=== PATIENT | male | born 1965 | race Hispanic/Latino ===

== ENCOUNTER 2019-10-04 16:01 | Emergency (ER) | payer BC ==
--- OUTSIDE RECORDS SUMMARY | 2019-10-04 16:07 | XMS REPORT | Continuity of Care Document ---
:1965 Author Organization [facility] t Address [address] Diaz [address] [place] [address] Care Team Providers Name Role Phone Jr Najera Harold S Attending Clinician Unavailable Problems This patient has no known problems. Allergies, Adverse Reactions, Alerts This patient has no known allergies or adverse reactions. Medications This patient has no known medications. Procedures This patient has no known procedures. Encounters Start End Encounter Admission Attending Care Care Encounter Source Date/Time Date/Time Type Type Clinicians Facility Department ID 2017-05-30 2017-05-30 Outpatient Jr Najera SETENT SETENT 1975 [address] 09:39:00 09:39:00 [facility] Ear Nose and Throat 2017-05-24 2017-05-24 Outpatient Jr Najera SETENT SETENT 1971 [address] 09:33:00 09:33:00 [facility] Ear Nose and Throat 2017-05-23 2017-05-23 Outpatient Jr Najera SETENT SETENT 1969 [address] 08:47:00 08:47:00 [facility] Ear Nose and Throat Results This patient has no known results.
[2019-10-04] MEDS ORDERED: NA CHLORIDE 0.9% 1,000 ML ONE (16:53)
[2019-10-04 16:59] LABS: Hematocrit 47.9 % (39.6-49.0); Lymphocytes % 21.3 % (15.3-44.8); MPV 10.8 fL (7.6-11.3); RBC Red Blood Cell Count 5.51 M/uL (4.33-5.43)
[2019-10-04 17:05] LABS: BUN Blood Urea Nitrogen 24 mg/dL (7-18); Bicarbonate 29 mmol/L (21-32); Creatine Phosphokinase 189 U/L (39-308); Glucose Level 87 mg/dL (74-106); Potassium 3.9 mmol/L (3.5-5.1); Sodium Level 136 mmol/L (136-145)
--- NOTE | 2019-10-04 17:50 | ER ---
Nurse's Notes [facility] Name: Mansoor Cerda Jr Age: 54 yrs Sex: Male : 1965 Arrival Date: 10/04/2019 Time: 16:05 Bed 4 Private MD: Diagnosis: Allergic contact dermatitis;Cramp and spasm;Exposure to excessive natural heat Presentation: 10/03 16:09 Chief complaint: Patient states: + body aches since last night. Diarrhea since ll1 yesterday. Started having muscle cramps after work. Possible dehydration. Coronavirus screen: Proceed with normal triage. Patient denies a cough. Patient denies shortness of breath or difficulty breathing. Patient denies measured and/or subjective temperature greater than 100.4F prior to today's visit. Patient denies travel on a cruise ship or to a country the [facility] currently lists as an affected area. Patient denies contact with known and/or suspected case of COVID-19. Ebola Screen: Patient denies travel to an Ebola-affected area in the 21 days before illness onset. Initial Sepsis Screen: Does the patient meet any 2 criteria? No. Patient's initial sepsis screen is negative. Risk Assessment: Do you want to hurt yourself or someone else? Patient reports no desire to harm self or others. Onset of symptoms was October 03, 2019. 16:09 Method Of Arrival: Ambulatory ll1 16:09 Acuity: CARINA 3 ll1 16:10 Initial Sepsis Screen: Does the patient have a suspected source of infection? No. iw Patient's initial sepsis screen is negative. Historical: - Allergies: 16:12 Phenergan; ll1 - PMHx: 16:12 Gout; Hypertension; Kidney stones; Anxiety; GERD; ll1 - PSHx: 16:12 Cholecystectomy; ll1 - Immunization history:: Flu vaccine is up to date. - Social history:: Patient/guardian denies using alcohol, street drugs, tobacco products, Smoking status: unknown. Screenin:43 Abuse screen: Denies threats or abuse. Denies injuries from another. Nutritional iw screening: No deficits noted. Tuberculosis screening: No symptoms or risk factors identified. Fall Risk IV access (20 points). Assessment: 16:40 General: Appears in no apparent distress. Behavior is calm, cooperative. Pain: iw Complains of pain in pt feels soreness in his muscles from the cramping. Neuro: Level of Consciousness is awake, alert, obeys commands, Oriented to person, place, time, situation, Moves all extremities. Full function. Cardiovascular: Patient's skin is warm and dry. Respiratory: Respiratory effort is even, unlabored, Respiratory pattern is regular, symmetrical. GI: Patient currently denies diarrhea, nausea, vomiting. Derm: Skin is intact, is healthy with good turgor. Musculoskeletal: Range of motion: intact in all extremities. Vital Signs: 16:09 Pulse 77; Resp 18; Temp 98.3; Pulse Ox 95% ; Weight 155.58 kg; Height 5 ft. 6 in. ll1 (167.64 cm); Pain 6/10; 16:30 BP 112 / 61 Supine; Pulse 71; Resp 16 S; Pulse Ox 98% on R/A; iw 16:35 BP 134 / 78 Sitting; Pulse 71; Resp 16; Pulse Ox 99% on R/A; iw 16:40 BP 139 / 98 Standing; Pulse 78; Resp 16; Pulse Ox 98% on R/A; iw 17:26 BP 116 / 66; Pulse 67; Resp 16; Pulse Ox 97% on R/A; iw 18:14 BP 134 / 91; Pulse 69; Resp 18; Temp 97.8; Pulse Ox 98% on R/A; ph 16:09 Body Mass Index 55.36 (155.58 kg, 167.64 cm) ll1 ED Course: 16:05 Patient arrived in ED. fj1 16:12 Triage completed. ll1 16:12 Shavon Pollard FNP-C [facility]. kb 16:12 Jose Riuz MD is Attending Physician. kb 16:13 Arm band placed on. ll1 16:40 Amanda Rubio, MARY is Primary Nurse. iw 16:43 Initial lab(s) drawn, by me, sent to lab. Inserted saline lock: 20 gauge in left iw forearm, using aseptic technique. Blood collected. 18:14 No provider procedures requiring assistance completed. IV discontinued, intact, ph bleeding controlled, No redness/swelling at site. Pressure dressing applied. 18:15 Patient has correct armband on for positive identification. Bed in low position. Call ph light in reach. Side rails up X 1. Pulse ox on. NIBP on. Door closed. Noise minimized. Administered Medications: 16:51 Drug: NS 0.9% 1000 ml Route: IV; Rate: 1000 ml; Site: left forearm; iw 18:13 Follow up: Response: No adverse reaction; IV Status: Completed infusion; IV Intake: ph 1000ml Intake: 18:13 IV: 1000ml; Total: 1000ml. ph Outcome: 17:49 Discharge ordered by MD. da silva 18:21 Discharged to home ambulatory. ph 18:21 Condition: good 18:21 Discharge instructions given to patient, Instructed on discharge instructions, follow up and referral plans. Demonstrated understanding of instructions, follow-up care. 18:21 Patient left the ED. ph Signatures: Shavon Pollard, FIREWALL ADMINISTRATOR-C FIREWALL ADMINISTRATOR-CkAmanda Omalley, RN RN Marilin Sierra RN RN Tu Olmedo Gallito Finley RN RN ll1 Corrections: (The following items were deleted from the chart) 16:42 16:30 BP 112 / 61; Pulse 71bpm; Resp 16bpm; Spontaneous; Pulse Ox 98% RA; iw iw
--- NOTE | 2019-10-04 17:50 | EDPHYS ---
Physician Documentation [facility] Name: Mansoor Cerda Jr Age: 54 yrs Sex: Male : 1965 Arrival Date: 10/04/2019 Time: 16:05 Bed 4 Private MD: ED Physician Jose Ruiz HPI: 10/03 18:01 This 54 yrs old Male presents to ER via Ambulatory with complaints of kb DEHYDRATION. 18:01 Pt reports he was working outside all day yesterday and it was a bad day. States it was kb hot with no breeze or shade. States he thinks he got overheated and didn't drink enough water. Reports he was feeling drained when he got home and had muscle cramps throughout the night. States the cramps are better, but today he was still feeling drained. He did go to work today in the same elements/same location. Also reports a small, itchy rash to left AC that started 5 days ago.. Onset: The symptoms/episode began/occurred yesterday. Severity of symptoms: At their worst the symptoms were moderate in the emergency department the symptoms have improved. The patient has not experienced similar symptoms in the past. The patient has not recently seen a physician. Historical: - Allergies: 16:12 Phenergan; ll1 - PMHx: 16:12 Gout; Hypertension; Kidney stones; Anxiety; GERD; ll1 - PSHx: 16:12 Cholecystectomy; ll1 - Immunization history:: Flu vaccine is up to date. - Social history:: Patient/guardian denies using alcohol, street drugs, tobacco products, Smoking status: unknown. ROS: 17:41 Constitutional: Negative for fever, chills, and weight loss, ENT: Negative for injury, kb pain, and discharge, Neck: Negative for injury, pain, and swelling, Cardiovascular: Negative for chest pain, palpitations, and edema, Respiratory: Negative for shortness of breath, cough, wheezing, and pleuritic chest pain, Abdomen/GI: Negative for abdominal pain, nausea, vomiting, diarrhea, and constipation, Back: Negative for injury and pain, MS/Extremity: Negative for injury and deformity, Skin: Negative for injury, rash, and discoloration, Neuro: Negative for headache, weakness, numbness, tingling, and seizure. 17:41 MS/extremity: Positive for muscle cramps. Exam: 17:57 Constitutional: This is a well developed, well nourished patient who is awake, alert, kb and in no acute distress. Head/Face: Normocephalic, atraumatic. Chest/axilla: Normal chest wall appearance and motion. Nontender with no deformity. No lesions are appreciated. Cardiovascular: Regular rate and rhythm with a normal S1 and S2. No gallops, murmurs, or rubs. Normal PMI, no JVD. No pulse deficits. Respiratory: Lungs have equal breath sounds bilaterally, clear to auscultation and percussion. No rales, rhonchi or wheezes noted. No increased work of breathing, no retractions or nasal flaring. Abdomen/GI: Soft, non-tender, with normal bowel sounds. No distension or tympany. No guarding or rebound. No evidence of tenderness throughout. MS/ Extremity: Pulses equal, no cyanosis. Neurovascular intact. Full, normal range of motion. Neuro: Awake and alert, GCS 15, oriented to person, place, time, and situation. Cranial nerves II-XII grossly intact. Motor strength 5/5 in all extremities. Sensory grossly intact. Cerebellar exam normal. Normal gait. 17:57 Skin: rash a mild rash is noted, rash can be described as macular, papular, consistent with contact dermatitis, on the left antecubital area. Vital Signs: 16:09 Pulse 77; Resp 18; Temp 98.3; Pulse Ox 95% ; Weight 155.58 kg; Height 5 ft. 6 in. ll1 (167.64 cm); Pain 6/10; 16:30 BP 112 / 61 Supine; Pulse 71; Resp 16 S; Pulse Ox 98% on R/A; iw 16:35 BP 134 / 78 Sitting; Pulse 71; Resp 16; Pulse Ox 99% on R/A; iw 16:40 BP 139 / 98 Standing; Pulse 78; Resp 16; Pulse Ox 98% on R/A; iw 17:26 BP 116 / 66; Pulse 67; Resp 16; Pulse Ox 97% on R/A; iw 18:14 BP 134 / 91; Pulse 69; Resp 18; Temp 97.8; Pulse Ox 98% on R/A; ph 16:09 Body Mass Index 55.36 (155.58 kg, 167.64 cm) ll1 MDM: 16:17 Patient medically screened. kb 17:41 Data reviewed: vital signs, nurses notes. Data interpreted: Pulse oximetry: on room air kb is 97 %. Interpretation: normal. Counseling: I had a detailed discussion with the patient and/or guardian regarding: the historical points, exam findings, and any diagnostic results supporting the discharge/admit diagnosis, lab results, the need for outpatient follow up, a family practitioner, to return to the emergency department if symptoms worsen or persist or if there are any questions or concerns that arise at home. 10/03 16:25 Order name: CBC with Diff; Complete Time: 17:01 kb 10/03 16:25 Order name: Basic Metabolic Panel; Complete Time: 17:10 kb 10/03 16:25 Order name: CPK; Complete Time: 17:10 kb 10/03 16:25 Order name: IV Start; Complete Time: 16:35 kb 10/03 17:45 Order name: Urine Dipstick--Ancillary (enter results); Complete Time: 18:46 eb 10/03 16:25 Order name: Urine Dipstick-Ancillary (obtain specimen); Complete Time: 16:51 kb 10/03 16:25 Order name: Orthostatics; Complete Time: 16:36 kb Administered Medications: 16:51 Drug: NS 0.9% 1000 ml Route: IV; Rate: 1000 ml; Site: left forearm; iw 18:13 Follow up: Response: No adverse reaction; IV Status: Completed infusion; IV Intake: ph 1000ml Disposition: 10/04 07:07 Co-signature as Attending Physician, Jose Ruiz MD. rn Disposition: 10/04/19 17:49 Discharged to Home. Impression: Allergic contact dermatitis, Cramp and spasm, Exposure to excessive natural heat. - Condition is Stable. - Discharge Instructions: Muscle Cramps and Spasms, [id number], Heat Exhaustion Information, Contact Dermatitis, [id number]. - Medication Reconciliation Form, Thank You Letter, Antibiotic Education, Prescription Opioid Use, Work release form form. - Follow up: Emergency Department; When: As needed; Reason: Worsening of condition. Follow up: Private Physician; When: 2 - 3 days; Reason: Recheck today's complaints, Continuance of care, Re-evaluation by your physician. Signatures: Dispatcher [employer] Gary Jonesistin, AREA COORDINATOR-C AREA COORDINATOR-Ckb Amanda Rubio, RN RN iw Jose Ruiz MD MD rn Hall, Patricia, RN RN Gallito Douglas RN RN ll1 Corrections: (The following items were deleted from the chart) 10/03 18:21 17:49 10/04/2019 17:49 Discharged to Home. Impression: Allergic contact dermatitis; ph Cramp and spasm; Exposure to excessive natural heat. Condition is Stable. Forms are Medication Reconciliation Form, Thank You Letter, Antibiotic Education, Prescription Opioid Use. Follow up: Emergency Department; When: As needed; Reason: Worsening of condition. Follow up: Private Physician; When: 2 - 3 days; Reason: Recheck today's complaints, Continuance of care, Re-evaluation by your physician. kb
[2019-10-04 18:21] LABS: Urine Blood TRACE (NEG); Urine Glucose NEGATIVE (NEG); Urine Protein 2+ (NEG); Urine pH 5.5 (5.0-7.0)
[2019-10-04 18:36] VITALS: BP 134/91; TEMP 97.8; O2SAT 98
== END 2019-10-04 18:21 | disposition home or self-care (01) ==
LOC: ER 16:01
DX: T67.2XXA Heat cramp, initial encounter (principal); L23.9 Allergic contact dermatitis, unspecified cause; X30.XXXA Exposure to excessive natural heat, initial encounter; Y93.9 Activity, unspecified; Y92.9 Unspecified place or not applicable; Z88.8 Allergy status to other drugs, medicaments and biological substances
CPT/HCPCS: 85025; 80048; 36415; 82550; 81003; 96360; 99284; J7030

== ENCOUNTER 2019-10-07 07:23 | Emergency (ER) | payer BC ==
--- OUTSIDE RECORDS SUMMARY | 2019-10-07 07:27 | XMS REPORT | Continuity of Care Document ---
:1965 Author Organization [facility] t Address [address] Diaz [address] [place] [id number] Care Team Providers Name Role Phone Jr [...] SETENT SETENT 1977 [address] 09:39:00 09:39:00 [facility] Ear Nose and Throat 2017-05-24 2017-05-24 Outpatient Jr Najera SETENT SETENT 1971 [address] 09:33:00 09:33:00 [facility] Ear Nose and Throat 2017-05-23 2017-05-23 Outpatient Jr Najera SETENT SETENT 1969 [address] 08:47:00 08:47:00 [facility] Nose and Th[facility]at Results This patient has no known results.
[2019-10-07] MEDS ORDERED: FLUORESCEIN SODIUM 1 MG/WRAP ONE ×2 (07:52→08:11)
[2019-10-07] MEDS ORDERED: TETRACAINE HCL 0.5% 4ML OPTH ONE ×2 (07:52→08:11)
--- NOTE | 2019-10-07 08:13 | ER ---
Nurse's Notes [facility] Name: Mansoor Cerda Jr Age: 54 yrs Sex: Male : 1965 Arrival Date: 10/07/2019 Time: 07:27 Bed 6 Private MD: Diagnosis: Injury of conjunctiva and corneal abrasion without foreign body, right eye Presentation: 10/06 07:40 Chief complaint: Patient states: Weedeating yesterday, something hit in right eye, jl7 feels like something is in there. 07:40 Coronavirus screen: Proceed with normal triage. Patient denies a cough. Patient denies jl7 shortness of breath or difficulty breathing. Patient denies measured and/or subjective temperature greater than 100.4F prior to today's visit. Patient denies travel on a cruise ship or to a country the [facility] currently lists as an affected area. Patient denies contact with known and/or suspected case of COVID-19. Ebola Screen: No symptoms or risks identified at this time. Mechanism of Injury: weedeating. The patient denies any loss of vision. Initial Sepsis Screen: Does the patient meet any 2 criteria? No. Patient's initial sepsis screen is negative. Does the patient have a suspected source of infection? No. Patient's initial sepsis screen is negative. Risk Assessment: Do you want to hurt yourself or someone else? Patient reports no desire to harm self or others. Onset of symptoms was October 04, 2019. Care prior to arrival: None. 07:40 Method Of Arrival: Ambulatory [facility] 07:40 Acuity: CARINA 4 jl7 Triage Assessment: 07:40 General: Appears in no apparent distress. uncomfortable, Behavior is calm, cooperative, jl7 appropriate for age. Pain: Complains of pain in right eye Pain currently is 8 out of 10 on a pain scale. EENT: Sclera/Cornea are reddened in right eye. Neuro: Level of Consciousness is awake, alert, obeys commands, Oriented to person, place, time, situation. Cardiovascular: Patient's skin is warm and dry. Respiratory: Airway is patent Respiratory effort is even, unlabored, Respiratory pattern is regular, symmetrical. Derm: Skin is pink, warm \T\ dry. Historical: - Allergies: 07:40 Phenergan; jl7 - Home Meds: 07:40 Lisinopril Oral [Active]; Omeprazole Oral [Active]; Allopurinol Oral [Active]; jl7 - PMHx: 07:40 Anxiety; GERD; Gout; Hypertension; Kidney stones; jl7 - PSHx: 07:40 Cholecystectomy; jl7 - Immunization history:: Adult Immunizations up to date. - Social history:: Smoking status: Patient denies any tobacco usage or history of. Screenin:00 Abuse screen: Denies threats or abuse. Denies injuries from another. Nutritional jl7 screening: No deficits noted. Tuberculosis screening: No symptoms or risk factors identified. Fall Risk None identified. Assessment: 07:40 General: See triage assessment. jl7 08:00 Reassessment: Dr. Reynolds at bedside. jl7 08:11 EENT: Eyes are tearing on right eye. jl7 08:14 Reassessment: PT D/C HOME AMBULATORY, DX WITH R EYE CORNEAL ABRASION. bp Vital Signs: 07:40 BP 156 / 84; Pulse 70; Resp 17; Temp 97.2; Pulse Ox 95% ; Weight 156.49 kg; Height 5 jl7 ft. 6 in. (167.64 cm); Pain 8/10; 07:40 Body Mass Index 55.68 (156.49 kg, 167.64 cm) jl7 Visual Acuity: 08:11 Left Eye React To Light; Right Eye React To Light; Without Lenses; jl7 08:21 Left Eye Visual acuity 20/25, ; Right Eye Visual acuity 20/30, ; Without Lenses; jl7 ED Course: 07:27 Patient arrived in ED. mr 07:36 Berenice Gomez RN is Primary Nurse. jl7 07:40 Arm band placed on right wrist. jl7 07:58 Gómez Reynolds MD is Attending Physician. kdr 08:00 Patient has correct armband on for positive identification. Bed in low position. Call [facility] light in reach. Side rails up X 1. Pulse ox on. NIBP on. 08:00 Assist provider with eye exam of right eye. using fluorescein stain, Performed by Gómez Reynolds MD Patient tolerated well. 08:06 Triage completed. jl7 08:09 Saul Saeed MD is Referral Physician. kdr 08:14 Patient did not have IV access during this emergency room visit. bp Administered Medications: 08:00 Drug: Tetracaine Drops 0.5 % 1 drops Route: Ophthalmic; Site: right eye; jl7 08:11 Follow up: Response: No adverse reaction jl7 Outcome: 08:13 Discharge ordered by . howard 08:14 Discharged to home ambulatory. bp 08:14 Condition: stable 08:14 Discharge instructions given to patient, Instructed on discharge instructions, follow up and referral plans. medication usage, Demonstrated understanding of instructions, follow-up care, medications, Prescriptions given X 1. 08:22 Patient left the ED. jl7 Signatures: Gómez Reynolds MD MD kdr Rivera, Mary mr Leal, Jahala RN RN jl7 Karl Frank, RN RN bp
--- NOTE | 2019-10-07 08:14 | EDPHYS ---
Physician Documentation [facility] Name: Mansoor Cerda Jr Age: 54 yrs Sex: Male : 1965 Arrival Date: 10/07/2019 Time: 07:27 Bed 6 Private MD: ED Physician Gómez Reynolds HPI: 10/06 08:15 This 54 yrs old Male presents to ER via Ambulatory with complaints of Eye kdr Injury. 08:15 The patient is experiencing foreign body sensation, pain, redness, tearing, The patient kdr sustained an abrasion, contusion, a scratch, to the right eye, caused by debris, The patient was weed eating without protective eye gear. Onset: The symptoms/episode began/occurred suddenly, yesterday. Duration: the symptoms are continuous. Aggravated by blinking, light. Associated signs and symptoms: Pertinent positives: None. Pertinent negatives: None. Patient does not utilize any form of vision correction. Severity of symptoms: At their worst the symptoms were mild in the emergency department the symptoms are unchanged. The patient has not experienced similar symptoms in the past. The patient has not recently seen a physician. Historical: - Allergies: 07:40 Phenergan; jl7 - Home Meds: 07:40 Lisinopril Oral [Active]; Omeprazole Oral [Active]; Allopurinol Oral [Active]; jl7 - PMHx: 07:40 Anxiety; GERD; Gout; Hypertension; Kidney stones; jl7 - PSHx: 07:40 Cholecystectomy; jl7 - Immunization history:: Adult Immunizations up to date. - Social history:: Smoking status: Patient denies any tobacco usage or history of. ROS: 08:15 Constitutional: Negative for fever, chills, and weight loss, ENT: Negative for injury, kdr pain, and discharge, Neck: Negative for injury, pain, and swelling. 08:15 Eyes: Positive for foreign body sensation, pain, photophobia, redness, tearing, Negative for blurry vision, discharge, matting, sunken appearance, vision loss, visual disturbance. Exam: 08:15 Constitutional: This is a well developed, well nourished patient who is awake, alert, kdr and in no acute distress. Head/Face: Normocephalic, atraumatic. Neck: Trachea midline, no thyromegaly or masses palpated, and no cervical lymphadenopathy. Supple, full range of motion without nuchal rigidity, or vertebral point tenderness. No Meningismus. 08:15 Eyes: Periorbital structures: appear normal, Pupils: equal, round, and reactive to light and accomodation, Extraocular movements: intact throughout, Conjunctiva: injected, in the right eye, Corneas: abrasion, that is small, on the right, Center, Sclera: INjected, Anterior chamber: 08:15 Eyes: Corneas: abrasion, foreign body, is not appreciated, a fluorescein strip employed kdr to appreciate the findings. Vital Signs: 07:40 BP 156 / 84; Pulse 70; Resp 17; Temp 97.2; Pulse Ox 95% ; Weight 156.49 kg; Height 5 jl7 ft. 6 in. (167.64 cm); Pain 8/10; 07:40 Body Mass Index 55.68 (156.49 kg, 167.64 cm) jl7 Visual Acuity: 08:11 Left Eye React To Light; Right Eye React To Light; Without Lenses; jl7 08:21 Left Eye Visual acuity 20/25, ; Right Eye Visual acuity 20/30, ; Without Lenses; jl7 MDM: 08:13 Patient medically screened. kdr 08:15 Data reviewed: vital signs, nurses notes. Counseling: I had a detailed discussion with kdr the patient and/or guardian regarding: the historical points, exam findings, and any diagnostic results supporting the discharge/admit diagnosis, lab results. 10/06 08:10 Order name: Eye Tray; Complete Time: 08:10 7 10/06 08:10 Order name: Fluoresene Opth strip; Complete Time: 08:10 7 Administered Medications: 08:00 Drug: Tetracaine Drops 0.5 % 1 drops Route: Ophthalmic; Site: right eye; 7 08:11 Follow up: Response: No adverse reaction jl7 Disposition: 10/07/19 08:13 Discharged to Home. Impression: Injury of conjunctiva and corneal abrasion without foreign body, right eye. - Condition is Stable. - Discharge Instructions: Corneal Abrasion. - Prescriptions for Gentamicin 0.3 % Ophthalmic Drops - instill 2 drops by OPHTHALMIC route every 4 hours for 3 days; 1 bottle. - Medication Reconciliation Form, Thank You Letter, Antibiotic Education, Work release form form. - Follow up: Saul Saeed MD; When: 24 Hours; Reason: Further diagnostic work-up, Recheck today's complaints, Continuance of care, Re-evaluation by your physician. - Problem is new. - Symptoms are unchanged. Signatures: Gómez Reynolds MD MD [facility] Berenice Gomez RN RN jl7 Corrections: (The following items were deleted from the chart) 08:22 08:13 10/07/2019 08:13 Discharged to Home. Impression: Injury of conjunctiva and jl7 corneal abrasion without foreign body, right eye. Condition is Stable. Forms are Medication Reconciliation Form, Thank You Letter, Antibiotic Education, Prescription Opioid Use. Follow up: Saul Saeed; When: 24 Hours; Reason: Further diagnostic work-up, Recheck today's complaints, Continuance of care, Re-evaluation by your physician. Problem is new. Symptoms are unchanged. kdr
[2019-10-07 08:28] VITALS: BP 156/84; TEMP 97.2; O2SAT 95
== END 2019-10-07 08:22 | disposition home or self-care (01) ==
LOC: ER 07:23
DX: S05.01XA Injury of conjunctiva and corneal abrasion without foreign body, right eye, initial encounter (principal); I10 Essential (primary) hypertension; F41.9 Anxiety disorder, unspecified; Z88.8 Allergy status to other drugs, medicaments and biological substances
CPT/HCPCS: 99284

== ENCOUNTER 2020-11-30 16:42 | Emergency (ER) | payer BC ==
--- OUTSIDE RECORDS SUMMARY | 2020-11-30 16:45 | XMS REPORT | Continuity of Care Document ---
:1965 Author Organization [facility] t Address [address] [place]. [address] [place] [id number] Care Team Providers Name Role Phone Jr [...] SETENT SETENT 1975 [address] 09:39:00 09:39:00 [facility] Ear Nose and Throat 2017-05-24 2017-05-24 Outpatient Jr Najera SETENT SETENT 1971 [address] 09:33:00 09:33:00 [facility] Ear Nose and Throat 2017-05-23 2017-05-23 Outpatient Jr Najera SETENT SETENT 1969 [address] 08:47:00 08:47:00 [facility] Ear Nose and Throat Results This patient has no known results.
[2020-11-30] MEDS ORDERED: HYDROCODONE/APAP 10/325 TAB ONE (20:32)
[2020-11-30] MEDS ORDERED: dexAMETHasone 10 MG/ML VIAL ONE (20:32)
[2020-11-30] MEDS ORDERED: COLCHICINE 0.6 MG TAB ONE ×2 (20:33→22:37)
--- NOTE | 2020-11-30 22:14 | EDPHYS ---
Physician Documentation [facility] Name: Mansoor Cerda Jr Age: 55 yrs Sex: Male : 1965 Arrival Date: 11/30/2020 Time: 16:46 Bed 14 Private MD: MARCI Physician Mahendra Stovall HPI: 11/30 20:06 This 55 yrs old Male presents to ER via Wheelchair with complaints of Feet pm1 Swelling, Foot Pain. 20:06 The patient presents with pain, that is acute, swelling. The complaints affect the The pm1 complaints affect the dorsum of left foot. Context: The problem was sustained at home, resulted from gout flare up, the patient can fully bear weight, the patient is able to ambulate. Onset: The symptoms/episode began/occurred 4 day(s) ago. Modifying factors: The symptoms are alleviated by elevating leg, the symptoms are aggravated by movement, weight bearing. Associated signs and symptoms: The patient has no apparent associated signs or symptoms, Pertinent positives: swelling, Pertinent negatives calf tenderness, fever, numbness, tingling. Severity of symptoms: in the emergency department the symptoms are actually worse. The patient has experienced similar episodes in the past, multiple times. The patient has not recently seen a physician, Bari bell out of town. Patient took his last colcrys yesterday. Did not have enough to manage his gout flare up. Historical: - Allergies: 18:43 Phenergan; iw - PMHx: 18:43 Anxiety; GERD; Gout; Hypertension; Kidney stones; iw - Immunization history:: Client reports having NOT received the Covid vaccine. - Social history:: Smoking status: Patient denies any tobacco usage or history of. ROS: 20:06 Constitutional: Negative for fever, chills, and weight loss, Cardiovascular: Negative pm1 for chest pain, palpitations, and edema, Respiratory: Negative for shortness of breath, cough, wheezing, and pleuritic chest pain. 20:06 Skin: Negative for injury, rash, and discoloration, Neuro: Negative for headache, weakness, numbness, tingling, and seizure. 20:06 MS/extremity: Positive for pain, swelling, tenderness, of the left foot, Negative for injury or acute deformity, decreased range of motion, deformity. 20:06 All other systems are negative. Exam: 20:06 Constitutional: This is a well developed, well nourished patient who is awake, alert, pm1 and in no acute distress. Head/Face: Normocephalic, atraumatic. 20:06 Back: No spinal tenderness. No costovertebral tenderness. Full range of motion. Skin: Warm, dry with normal turgor. Normal color with no rashes, no lesions, and no evidence of cellulitis. 20:06 Cardiovascular: Exam negative for acute changes, Rate: normal, Rhythm: regular, Pulses: no pulse deficits are appreciated. 20:06 Respiratory: Exam negative for acute changes, respiratory distress, shortness of breath. 20:06 Musculoskeletal/extremity: Extremities: grossly normal except: noted in the dorsum of left foot: swelling, tenderness, There is no evidence of decreased ROM, deformity. Vital Signs: 18:41 BP 159 / 76; Pulse 74; Resp 16; Temp 98.4; Pulse Ox 96% ; Weight 152.41 kg; Height 5 iw ft. 6 in. (167.64 cm); Pain 10/10; 22:31 BP 145 / 70; Pulse 68; Resp 18; Pulse Ox 98% on R/A; ak2 18:41 Body Mass Index 54.23 (152.41 kg, 167.64 cm) iw MDM: 19:59 Patient medically screened. pm1 22:13 Data reviewed: vital signs. Data interpreted: Pulse oximetry: on room air is 96 %. pm1 Interpretation: normal. Counseling: I had a detailed discussion with the patient and/or guardian regarding: the historical points, exam findings, and any diagnostic results supporting the discharge/admit diagnosis, the need for outpatient follow up, a family practitioner, to return to the emergency department if symptoms worsen or persist or if there are any questions or concerns that arise at home. Administered Medications: 20:14 Drug: Colcrys (colchicine) 1.2 mg Route: PO; em 20:14 Drug: [place] (HYDROcodone-acetaminophen) 10 mg-325 mg 1 tabs Route: PO; em 20:14 Drug: Decadron (dexamethasone) 10 mg Route: IM; Site: left deltoid; em 22:22 Drug: Colcrys (colchicine) 0.6 mg Route: PO; ak2 Disposition: 12/01 07:32 Co-signature as Attending Physician, Mahendra Stovall MD I agree with the assessment and anette plan of care. Disposition Summary: 11/30/20 22:13 Discharge Ordered Location: Home pm1 Problem: new pm1 Symptoms: have improved pm1 Condition: Stable pm1 Diagnosis - Gout, unspecified pm1 Followup: pm1 - With: Emergency Department - When: As needed - Reason: Worsening of condition Followup: pm1 - With: Private Physician - When: 2 - 3 days - Reason: Recheck today's complaints, Continuance of care, Re-evaluation by your physician Discharge Instructions: - Discharge Summary Sheet pm1 - Gout pm1 - Form - Return To Work ak2 Forms: - Medication Reconciliation Form pm1 - Thank You Letter pm1 - Antibiotic Education pm1 - Prescription Opioid Use pm1 - Work release form ak2 Prescriptions: - acetaminophen-codeine 300-15 mg Oral tablet - take 1 tablet by ORAL route every 6 hours As needed; 20 tablet; Refills: 0, pm1 Product Selection Permitted - indomethacin 50 mg Oral capsule - take 1 capsule by ORAL route 3 times per day As needed with food; 15 capsule; pm1 Refills: 0, Product Selection Permitted Signatures: Mahendra Stovall MD MD cha Munoz, Edgar, RN Amanda Gomez RN RN iw Marinas, Patrick, NP [employer]MI[employer] pm1 Dylon Bird ak2
--- NOTE | 2020-11-30 22:14 | ER ---
Nurse's Notes [facility] Name: Mansoor Cerda Jr Age: 55 yrs Sex: Male : 1965 Arrival Date: 11/30/2020 Time: 16:46 Bed 14 Private MD: Diagnosis: Gout, unspecified Presentation: 11/30 18:41 Chief complaint: Patient states: thinks it's a symptom of gout, finished all his gout iw meds, c/o left foot pain and swelling. Coronavirus screen: At this time, the client does not indicate any symptoms associated with coronavirus-19. Ebola Screen: Patient negative for fever greater than or equal to 101.5 degrees Fahrenheit, and additional compatible Ebola Virus Disease symptoms Patient denies exposure to infectious person. Patient denies travel to an Ebola-affected area in the 21 days before illness onset. No symptoms or risks identified at this time. Initial Sepsis Screen: Does the patient meet any 2 criteria? No. Patient's initial sepsis screen is negative. Does the patient have a suspected source of infection? No. Patient's initial sepsis screen is negative. Risk Assessment: Do you want to hurt yourself or someone else? Patient reports no desire to harm self or others. Onset of symptoms was November 27, 2020. 18:41 Method Of Arrival: Wheelchair iw 18:41 Acuity: CARINA 3 iw Triage Assessment: 22:32 General: Appears in no apparent distress. Behavior is calm, cooperative. Pain: Denies ak2 pain. Historical: - Allergies: 18:43 Phenergan; iw - PMHx: 18:43 Anxiety; GERD; Gout; Hypertension; Kidney stones; iw - Immunization history:: Client reports having NOT received the Covid vaccine. - Social history:: Smoking status: Patient denies any tobacco usage or history of. Screenin:32 Abuse screen: Denies threats or abuse. Denies injuries from another. Nutritional ak2 screening: No deficits noted. Tuberculosis screening: No symptoms or risk factors identified. Fall Risk None identified. Vital Signs: 18:41 BP 159 / 76; Pulse 74; Resp 16; Temp 98.4; Pulse Ox 96% ; Weight 152.41 kg; Height 5 iw ft. 6 in. (167.64 cm); Pain 10/10; 22:31 BP 145 / 70; Pulse 68; Resp 18; Pulse Ox 98% on R/A; ak2 18:41 Body Mass Index 54.23 (152.41 kg, 167.64 cm) ED Course: 16:46 Patient arrived in ED. mr 18:43 Triage completed. iw 18:43 Arm band placed on. iw 19:55 Martita Weiss, MARY is Primary Nurse. ld1 19:57 Wilmer Elena NP is PHCP. pm1 19:58 Mahendra Stovall MD is Attending Physician. pm1 22:32 Patient has correct armband on for positive identification. ak2 22:32 No provider procedures requiring assistance completed. Patient did not have IV access ak2 during this emergency room visit. Administered Medications: 20:14 Drug: Colcrys (colchicine) 1.2 mg Route: PO; em 20:14 Drug: [place] (HYDROcodone-acetaminophen) 10 mg-325 mg 1 tabs Route: PO; em 20:14 Drug: Decadron (dexamethasone) 10 mg Route: IM; Site: left deltoid; em 22:22 Drug: Colcrys (colchicine) 0.6 mg Route: PO; ak2 Outcome: 22:13 Discharge ordered by . pm1 22:32 Discharged to home ambulatory. ak2 22:32 Condition: good 22:32 Discharge instructions given to patient. 22:33 Patient left the ED. ak2 Signatures: Tasneem Michael mr JerezAditya RN RN em Amanda Rubio RN RN Wilmer Elena NP [employer] pm1 Martita Weiss RN RN [facility] Dylon Bird ak2
[2020-11-30 22:38] VITALS: TEMP 98.4
[2020-11-30 22:40] VITALS: BP 145/70; O2SAT 98
== END 2020-11-30 22:33 | disposition home or self-care (01) ==
LOC: ER 16:42
DX: M10.9 Gout, unspecified (principal); I10 Essential (primary) hypertension; Z88.8 Allergy status to other drugs, medicaments and biological substances
CPT/HCPCS: J1100

== ENCOUNTER 2021-02-10 21:06 | Emergency (ER) | payer BC ==
[2021-02-10] MEDS ORDERED: HYDROCODONE/APAP 10/325 TAB ONE ×2 (22:54→23:06)
[2021-02-10] MEDS ORDERED: predniSONE 20 MG TAB ONE ×2 (22:54→23:06)
[2021-02-10] MEDS ORDERED: KETOROLAC 30 MG/ML INJ ONE ×2 (22:55→23:06)
[2021-02-10] MEDS ORDERED: IBUPROFEN 400 MG TAB ONE (22:55)
--- NOTE | 2021-02-10 23:18 | EDPHYS ---
Physician Documentation [facility] Name: Mansoor Cerda Jr Age: 55 yrs Sex: Male : 1965 Arrival Date: 02/10/2021 Time: 21:32 Bed 13 Private MD: ED Physician Jose Ruiz HPI: 02/10 23:04 This 55 yrs old Male presents to ER via Ambulatory with complaints of rn Toothache. 23:04 The patient presents with pain. The problem is located in the Left lower premolar. rn Onset: The symptoms/episode began/occurred 1 week(s) ago. Duration: The symptoms are intermittent. Modifying factors: The symptoms are alleviated by nothing, the symptoms are aggravated by chewing, cold fluids. Associated signs and symptoms: Pertinent negatives: fever, redness in area, swelling, vomiting. Severity of symptoms: At their worst the symptoms were moderate, in the emergency department the symptoms are unchanged. The patient has experienced similar episodes in the past. The patient has been recently seen by a physician:. Patient reports pain to the left lower premolar region, pain for 1 to 2 weeks, recently saw dentist, given antibiotics and pain medication, hydrocodone. States was doing okay but then today pain got worse. States told needs a root canal and his feeling from previous procedure has come undone on the tooth. Reports mild swelling to left cheek. No fever. Historical: - Allergies: 21:51 Phenergan; df1 - Home Meds: 21:51 lisinopril Oral [Active]; Allopurinol Oral [Active]; Omeprazole Oral [Active]; Zoloft df1 50 mg Oral tab 1 tab once daily [Active]; - PMHx: 21:51 Anxiety; GERD; Gout; Hypertension; Kidney stones; df1 - PSHx: 21:51 Cholecystectomy; df1 - Immunization history:: Adult Immunizations up to date, Client reports having NOT received the Covid vaccine. - Social history:: Smoking status: Patient denies any tobacco usage or history of. - Family history:: not pertinent. - Hospitalizations: : No recent hospitalization is reported. ROS: 23:04 Constitutional: Negative for fever, chills, and weight loss, Eyes: Negative for injury, rn pain, redness, and discharge, ENT: Positive for left lower dental pain Cardiovascular: Negative for chest pain, palpitations, and edema, Respiratory: Negative for shortness of breath, cough, wheezing, and pleuritic chest pain, Neuro: Negative for headache, weakness, numbness, tingling, and seizure. Exam: 23:04 Constitutional: This is a well developed, well nourished patient who is awake, alert, rn appears uncomfortable, pacing in room Head/Face: Normocephalic, atraumatic. Eyes: Pupils equal round and reactive to light, extra-ocular motions intact. Lids and lashes normal. Conjunctiva and sclera are non-icteric and not injected. Cornea within normal limits. Periorbital areas with no swelling, redness, or edema. ENT: Poor dentition, no evidence of intraoral abscess or swelling. Mild induration of left buccal space without fluctuance or abscess noted. Deep cavity with fissure in pre-existing filling of left premolar tooth Neck: Trachea midline, no swelling or crepitus noted. No evidence of submandibular abscess MS/ Extremity: Pulses equal, no cyanosis. Neurovascular intact. Full, normal range of motion. Equal circumference. Neuro: Awake and alert, GCS 15, oriented to person, place, time, and situation. Cranial nerves II-XII grossly intact. Motor strength 5/5 in all extremities. Sensory grossly intact. Cerebellar exam normal. Normal gait. Vital Signs: 21:49 BP 181 / 90; Pulse 73; Resp 18; Temp 98.7; Pulse Ox 96% on R/A; Weight 156.94 kg; df1 Height 5 ft. 6 in. (167.64 cm); Pain 10/10; 23:35 BP 156 / 87; Pulse 68; Resp 18; Pulse Ox 99% ; Pain 5/10; wg 21:49 Body Mass Index 55.85 (156.94 kg, 167.64 cm) df1 MDM: 22:11 Patient medically screened. rn 23:16 Differential diagnosis: dental caries, dental abscess, Facial cellulitis, buccal space rn cellulitis. Data reviewed: vital signs, nurses notes, and as a result, I will discharge patient. Counseling: I had a detailed discussion with the patient and/or guardian regarding: the historical points, exam findings, and any diagnostic results supporting the discharge/admit diagnosis, the need for outpatient follow up, to return to the emergency department if symptoms worsen or persist or if there are any questions or concerns that arise at home. Response to treatment: the patient's symptoms have mildly improved after treatment, and as a result, I will discharge patient. Special discussion: I discussed with the patient/guardian in detail that at this point there is no indication for admission to the hospital. It is understood, however, that if the symptoms persist or worsen the patient needs to return immediately for re-evaluation. Based on the history and exam findings, there is no indication for further emergent testing or inpatient evaluation. I discussed with the patient/guardian the need to see a dentist for further evaluation of the symptoms. ED course: Patient has already seen dentist until needs root canal. Just had a prescription for hydrocodone. Will DC home with antibiotics and steroids in hopes of helping nerve pain. Urged to follow back up with dentist.. Administered Medications: 22:47 Drug: Ketorolac 30 mg Route: IM; Site: right deltoid; wg 22:48 Follow up: Response: No adverse reaction wg 22:47 Drug: [place] (HYDROcodone-acetaminophen) 10 mg-325 mg 1 tabs Route: PO; wg 22:48 Follow up: Response: No adverse reaction wg 22:47 Drug: predniSONE 60 mg Route: PO; wg 22:47 Follow up: Response: No adverse reaction wg 23:30 Drug: morphine 4 mg Route: IM; Site: right deltoid; wg 23:34 Follow up: Response: No adverse reaction Disposition Summary: 02/10/21 23:17 Discharge Ordered Location: Home rn Problem: an ongoing problem rn Symptoms: have improved rn Condition: Stable rn Diagnosis - Dental root caries rn Followup: rn - With: Private Physician - When: As needed - Reason: Recheck today's complaints, Re-evaluation by your physician Discharge Instructions: - Discharge Summary Sheet rn - Dental Caries, Adult rn - Dental Pain rn - Root Canal rn Forms: - Medication Reconciliation Form rn - Thank You Letter rn - Antibiotic internship - Prescription Opioid Use rn Prescriptions: - Clindamycin HCl 300 mg Oral Capsule - take 1 capsule by ORAL route every 6 hours for 10 days; 40 capsule; Refills: 0, rn Product Selection Permitted - Medrol (Apolinar) 4 mg Oral Tablets, Dose Pack - take 1 tablet by ORAL route as directed - follow package instructions; 1 rn packet; Refills: 0, Product Selection Permitted Signatures: Jose Ruiz MD MD rn Gamba, MARY Brink Dawn df1 Corrections: (The following items were deleted from the chart) 21:52 21:51 PSHx: None; df1 df1
--- NOTE | 2021-02-10 23:18 | ER ---
Nurse's Notes [facility] Name: Mansoor Cerda Jr Age: 55 yrs Sex: Male : 1965 Arrival Date: 02/10/2021 Time: 21:32 Bed 13 Private MD: Diagnosis: Dental root caries Presentation: 02/10 21:49 Chief complaint: Patient states: Lower left dental pain x 2 weeks. Coronavirus screen: df1 Vaccine status: Patient reports being unvaccinated. Ebola Screen: Patient negative for fever greater than or equal to 101.5 degrees Fahrenheit, and additional compatible Ebola Virus Disease symptoms Patient denies exposure to infectious person. Patient denies travel to an Ebola-affected area in the 21 days before illness onset. Initial Sepsis Screen: Does the patient meet any 2 criteria? No. Patient's initial sepsis screen is negative. Does the patient have a suspected source of infection? No. Patient's initial sepsis screen is negative. Risk Assessment: Do you want to hurt yourself or someone else? Patient reports no desire to harm self or others. Onset of symptoms was January 29, 2021. 21:49 Method Of Arrival: Ambulatory df1 21:49 Acuity: CARINA 4 df1 21:52 Note Pt states he completed Amoxicillin and Tylenol #3 from his dentist 2 days prior. df1 Pt states need for root canal. Requesting pain management.. Historical: - Allergies: 21:51 Phenergan; df1 - Home Meds: 21:51 lisinopril Oral [Active]; Allopurinol Oral [Active]; Omeprazole Oral [Active]; Zoloft df1 50 mg Oral tab 1 tab once daily [Active]; - PMHx: 21:51 Anxiety; GERD; Gout; Hypertension; Kidney stones; df1 - PSHx: 21:51 Cholecystectomy; df1 - Immunization history:: Adult Immunizations up to date, Client reports having NOT received the Covid vaccine. - Social history:: Smoking status: Patient denies any tobacco usage or history of. - Family history:: not pertinent. - Hospitalizations: : No recent hospitalization is reported. Assessment: 22:00 Pain: Complains of pain in Tooth Pain currently is 8 out of 10 on a pain scale. EENT: wg Reports tooth pain. 23:36 Reassessment: Went to discharge patient and stated he was still in a lot of pain. Per wg Dr. Ruiz, give 4mg of Morphine IM and D/C pt. Vital Signs: 21:49 BP 181 / 90; Pulse 73; Resp 18; Temp 98.7; Pulse Ox 96% on R/A; Weight 156.94 kg; df1 Height 5 ft. 6 in. (167.64 cm); Pain 10/10; 23:35 BP 156 / 87; Pulse 68; Resp 18; Pulse Ox 99% ; Pain 5/10; wg 21:49 Body Mass Index 55.85 (156.94 kg, 167.64 cm) df1 ED Course: 21:32 Patient arrived in ED. cf2 21:51 Triage completed. df1 22:11 Jose Ruiz MD is Attending Physician. rn 22:16 Taisha Victor, MARY is Primary Nurse. es2 Administered Medications: 22:47 Drug: Ketorolac 30 mg Route: IM; Site: right deltoid; wg 22:48 Follow up: Response: No adverse reaction wg 22:47 Drug: [place] (HYDROcodone-acetaminophen) 10 mg-325 mg 1 tabs Route: PO; wg 22:48 Follow up: Response: No adverse reaction wg 22:47 Drug: predniSONE 60 mg Route: PO; wg 22:47 Follow up: Response: No adverse reaction wg 23:30 Drug: morphine 4 mg Route: IM; Site: right deltoid; wg 23:34 Follow up: Response: No adverse reaction Outcome: 23:17 Discharge ordered by . rn 23:44 Discharged to home ambulatory, with family. wg 23:44 Condition: stable 23:44 Discharge instructions given to patient, family, friend, significant other, Instructed on discharge instructions, follow up and referral plans. medication usage, Demonstrated understanding of instructions, follow-up care, medications, Prescriptions given X 2. 23:45 Patient left the ED. wg Signatures: Jose Ruiz MD MD rn Frazier, Celesta cf2 Cuba Zaman RN Amena Acevedo df1 Taisha Victor RN RN es2 Corrections: (The following items were deleted from the chart) 21:52 21:51 PSHx: None; df1 df1
[2021-02-10 23:56] VITALS: TEMP 98.7
[2021-02-10] MEDS ORDERED: MORPHINE 4 MG/ML SYR ONE (23:56)
[2021-02-10 23:58] VITALS: BP 156/87; O2SAT 99
== END 2021-02-10 23:45 | disposition home or self-care (01) ==
LOC: ER 21:06
DX: K02.7 Dental root caries (principal); I10 Essential (primary) hypertension; F41.9 Anxiety disorder, unspecified; Z88.8 Allergy status to other drugs, medicaments and biological substances
CPT/HCPCS: 96372; 99283; J7512

== ENCOUNTER 2021-08-09 07:12 | Emergency (ER) | payer BC ==
[2021-08-09] MEDS ORDERED: COLCHICINE 0.6 MG TAB ONE (07:45)
[2021-08-09] MEDS ORDERED: NA CHLORIDE 0.9% 1,000 ML ONE (07:46)
[2021-08-09] MEDS ORDERED: MORPHINE 4 MG/ML SYR ONE ×3 (07:46→12:46)
[2021-08-09] MEDS ORDERED: ONDANSETRON 4 MG/2 ML VIAL ONE (07:46)
[2021-08-09 08:05] LABS: Absolute Lymphocytes (CBC) 1.9 K/uL (0.7-4.9); Hematocrit 45.8 % (39.6-49.0); Lymphocytes % 19.4 % (15.3-44.8); RBC Red Blood Cell Count 5.27 M/uL (4.33-5.43)
[2021-08-09 08:08] LABS: Protime INR 0.95
[2021-08-09 08:15] LABS: BUN Blood Urea Nitrogen 16 mg/dL (7-18); Bicarbonate 29 mmol/L (21-32); Glucose Level 105 mg/dL (74-106); Potassium 3.8 mmol/L (3.5-5.1); Sodium Level 139 mmol/L (136-145)
--- OUTSIDE RECORDS SUMMARY | 2021-08-09 08:20 | XMS REPORT | Continuity of Care Document ---
:1965 Author Organization [facility] t Address [address] Diaz [address] [place] [id number] Care Team Providers Name Role Phone PCP, PATIENT DOES NOT HAVE A Primary Care Physician Javi Hernandez RN Attending Clinician Unavailable ANGELIQUE Attending Clinician Unavailable Doctor Unassigned, Name Attending Clinician Unavailable Félix DEL ANGEL Attending Clinician Velma HERNANDEZ, T Attending Clinician Unavailable FÉLIX Attending Clinician Unavailable Jr Najera S Attending Clinician Unavailable Payers Payer Name Policy Type Policy Number Effective Date Expiration Date S ource Problems Condition Condition Condition Status Onset Resolution Last Treating Co mments Source Name Details Category Date Date Treatment Clinician Date No known No known Disease Unive rs active active ity of problems problems [facility] Allergies, Adverse Reactions, Alerts Allergy Allergy Status Severity Reaction(s) Onset Inactive Treating Comm ents Source Name Type Date Date Clinician Phenerga Propensi Active Unknown - 2020-05 Uni vers n Dm ty to See comments 2- ity of adverse 00:00: [place] reaction 00 Medical s Branch PHENERGA DRUG Active Unknown-Cmnt 2020-05 Un maren N DM 2- ity of 00:00: [place] 00 [facility] Prometha Propensi Active Unknown - 2016-05 Uni vers zine ty to See comments 1- ity of adverse 00:00: [place] reaction 00 Medical s [place] PROMETHA DRUG Active Unknown-Cmnt 2016-05 Un maren ZINE INGREDI 1- ity of 00:00: [place] 00 Medical [place] Social History Social Habit Start Date Stop Date Quantity Comments Source Exposure to Yes [facility] SARS-CoV-2 (event) Medica l Branch Tobacco use and 2021-04-28 2021-04-28 Never used [facility] [place] exposure 00:00:00 00:00:00 Medical Branch Sex [birth year] At [birth year] [facility] [place] 00:00:00 00:00:00 Medical Branch Smoking Status Start Date Stop Date Source Never smoker [facility] [place] [facility] Medications Ordered Filled Start Stop Current Ordering Indication Dosage Frequency Signature Comments Components Source Medication Medication Date Date Medication? Clinician (SIG) Name Name fluticasone Yes [id number] 2{spray Use 2 [facility] propionate 2-22 } Sprays in ity of 50 00:00: each [place] mcg/actuati 00 nostril Medic al on nasal daily. Branch spray codeine-gua 2021- Yes [id number] 5mL Take 5 mL [facility] ifenesin 2-22 06-30 by mouth ity of 10-100 mg/5 00:00: 05:59 every 6 [place] mL oral 00 :00 (six) Medical solution hours as Branch needed for Cough for up to 7 days. Indication s: acute pain lisinopriL- 2020-05 Yes [id number] 1{tbl} Take 1 [facility] hydrochloro 2-29 tablet by ity of thiazide 00:00: mouth [place] 10-12.5 mg 00 daily. Medical per tablet Branch guaiFENesin 2020-05 Yes [id number] 400mg Take 1 [facility] 400 mg 2-29 tablet by ity of tablet 00:00: mouth [place] 00 every 4 Medical (four) Branch hours as needed for Cough. cetirizine 2020-05 Yes [id number] 10mg Take 1 Univers (ZYRTEC) 10 2-29 tablet by ity of mg tablet 00:00: mouth [place] 00 daily. Medical Branch azelastine 2020-05 Yes [id number] 1{spray Use 1 [facility] 137 mcg 2-29 } [place] in ity of (0.1 %) 00:00: each [place] nasal spray 00 nostril 2 Med ical (two) Branch times daily. Use in each nostril as directed lisinopriL- 2020-05 Yes [id number] 1{tbl} Take 1 [facility] hydrochloro 2-29 tablet by ity of thiazide 00:00: mouth [place] 10-12.5 mg 00 daily. Medical per tablet Branch guaiFENesin 2020-05 Yes [id number] 400mg Take 1 [facility] 400 mg 2-29 tablet by ity of tablet 00:00: mouth [place] 00 every 4 Medical (four) Branch hours as needed for Cough. cetirizine 2020-05 Yes [id number] 10mg Take 1 Univers (ZYRTEC) 10 2-29 tablet by ity of mg tablet 00:00: mouth [place] 00 daily. Medical Branch azelastine 2020-05 Yes [id number] 1{spray Use 1 [facility] 137 mcg 2-29 } [place] in ity of (0.1 %) 00:00: each [place] nasal spray 00 nostril 2 Med ical (two) Branch times daily. Use in each nostril as directed lisinopriL- 2020-05 Yes [id number] 1{tbl} Take 1 [facility] hydrochloro 2-29 tablet by ity of thiazide 00:00: mouth [place] 10-12.5 mg 00 daily. Medical per tablet Branch guaiFENesin 2020-05 Yes [id number] 400mg Take 1 [facility] 400 mg 2-29 tablet by ity of tablet 00:00: mouth [place] 00 every 4 Medical (four) Branch hours as needed for Cough. cetirizine 2020-05 Yes [id number] 10mg Take 1 Univers (ZYRTEC) 10 2-29 tablet by ity of mg tablet 00:00: mouth [place] 00 daily. Medical Branch azelastine 2020-05 Yes [id number] 1{spray Use 1 Univers 137 mcg 2-29 } [place] in ity of (0.1 %) 00:00: each [place] nasal spray 00 nostril 2 Med ical (two) Branch times daily. Use in each nostril as directed lisinopriL- 2020-05 Yes [id number] 1{tbl} Take 1 Univers hydrochloro 2-29 tablet by ity of thiazide 00:00: mouth [place] 10-12.5 mg 00 daily. Medical per tablet Branch guaiFENesin 2020-05 Yes [id number] 400mg Take 1 [facility] 400 mg 2-29 tablet by ity of tablet 00:00: mouth [place] 00 every 4 Medical (four) Branch hours as needed for Cough. cetirizine 2020-05 Yes [id number] 10mg Take 1 Univers (ZYRTEC) 10 2-29 tablet by ity of mg tablet 00:00: mouth [place] 00 daily. Medical Branch azelastine 2020-05 Yes [id number] 1{spray Use 1 Univers 137 mcg 2-29 } [place] in ity of (0.1 %) 00:00: each [place] nasal spray 00 nostril 2 Med ical (two) Branch times daily. Use in each nostril as directed lisinopriL- 2020-05 Yes [id number] 1{tbl} Take 1 Univers hydrochloro 2-29 tablet by ity of thiazide 00:00: mouth [place] 10-12.5 mg 00 daily. Medical per tablet Branch guaiFENesin 2020-05 Yes [id number] 400mg Take 1 [facility] 400 mg 2-29 tablet by ity of tablet 00:00: mouth [place] 00 every 4 Medical (four) Branch hours as needed for Cough. cetirizine 2020-05 Yes [id number] 10mg Take 1 Univers (ZYRTEC) 10 2-29 tablet by ity of mg tablet 00:00: mouth [place] 00 daily. Medical Branch azelastine 2020-05 Yes [id number] 1{spray Use 1 Univers 137 mcg 2-29 } [place] in ity of (0.1 %) 00:00: each [place] nasal spray 00 nostril 2 Med ical (two) Branch times daily. Use in each nostril as directed lisinopriL- 2020-05 Yes [id number] 1{tbl} Take 1 [facility] hydrochloro 2-29 tablet by ity of thiazide 00:00: mouth [place] 10-12.5 mg 00 daily. Medical per tablet Branch guaiFENesin 2020-05 Yes [id number] 400mg Take 1 [facility] 400 mg 2-29 tablet by ity of tablet 00:00: mouth [place] 00 every 4 Medical (four) Branch hours as needed for Cough. cetirizine 2020-05 Yes [id number] 10mg Take 1 Univers (ZYRTEC) 10 2-29 tablet by ity of mg tablet 00:00: mouth [place] 00 daily. Medical Branch azelastine 2020-05 Yes [id number] 1{spray Use 1 Univers 137 mcg 2-29 } [place] in ity of (0.1 %) 00:00: each [place] nasal spray 00 nostril 2 Med ical (two) Branch times daily. Use in each nostril as directed lisinopriL- 2020-05 Yes [id number] 1{tbl} Take 1 Univers hydrochloro 2-29 tablet by ity of thiazide 00:00: mouth [place] 10-12.5 mg 00 daily. Medical per tablet Branch guaiFENesin 2020-05 Yes [id number] 400mg Take 1 [facility] 400 mg 2-29 tablet by ity of tablet 00:00: mouth [place] 00 every 4 Medical (four) Branch hours as needed for Cough. cetirizine 2020-05 Yes [id number] 10mg Take 1 Univers (ZYRTEC) 10 2-29 tablet by ity of mg tablet 00:00: mouth [place] 00 daily. Medical Branch azelastine 2020-05 Yes [id number] 1{spray Use 1 [facility] 137 mcg 2-29 } [place] in ity of (0.1 %) 00:00: each [place] nasal spray 00 nostril 2 Med ical (two) Branch times daily. Use in each nostril as directed DUEXIS 2020-05 Yes 1{tbl} Take 1 [facility] 800-26.6 mg 2-21 tablet by ity of per tablet 00:00: mouth [place] (three) Medical times Branch daily. DUEXIS 2020-05 Yes 1{tbl} Take 1 [facility] 800-26.6 mg 2-21 tablet by ity of per tablet 00:00: mouth [place] 00 (three) Medical times Branch daily. DUEXIS 2020-05 Yes 1{tbl} Take 1 [facility] 800-26.6 mg 2-21 tablet by ity of per tablet 00:00: mouth [place] 00 (three) Medical times Branch daily. DUEXIS 2020-05 Yes 1{tbl} Take 1 [facility] 800-26.6 mg 2-21 tablet by ity of per tablet 00:00: mouth [place] 00 (three) Medical times Branch daily. DUEXIS 2020-05 Yes 1{tbl} Take 1 [facility] 800-26.6 mg 2-21 tablet by ity of per tablet 00:00: mouth [place] 00 (three) Medical times Branch daily. DUEXIS 2020-05 Yes 1{tbl} Take 1 [facility] 800-26.6 mg 2-21 tablet by ity of per tablet 00:00: mouth [place] 00 (three) Medical times Branch daily. DUEXIS 2020-05 Yes 1{tbl} Take 1 [facility] 800-26.6 mg 2-21 tablet by ity of per tablet 00:00: mouth [place] 00 (three) Medical times Branch daily. amoxicillin 2020-05 Yes TAKE ONE Un maren 500 mg 2-06 (1) ity of capsule 00:00: [place](S[place] 00 BY MOUTH Medical EVERY Branch EIGHT HOURS UNTIL FINISHED. chlorhexidi 2020-05 Yes SWISH AND U nivers ne 0.12 % 2-06 SPIT 15 ity of mouthwash 00:00: ML(S) FOR [place] 00 THIRTY Medical SECONDS Branch TWICE DAILY. ibuprofen 2020-05 Yes TAKE ONE Univ ers 800 mg 2-06 (1) ity of tablet 00:00: TABLET(S) [place] 00 BY MOUTH Medical EVERY FOUR Branch TO SIX HOURS NEEDED FOR PAIN. amoxicillin 2020-05 Yes TAKE ONE Un maren 500 mg 2-06 (1) ity of capsule 00:00: [place](S[place] 00 BY MOUTH Medical EVERY Branch EIGHT HOURS UNTIL FINISHED. chlorhexidi 2020-05 Yes SWISH AND U nivers ne 0.12 % 2-06 SPIT 15 ity of mouthwash 00:00: ML(S) FOR [place] 00 THIRTY Medical SECONDS Branch TWICE DAILY. ibuprofen 2020-05 Yes TAKE ONE Univ ers 800 mg 2-06 (1) ity of tablet 00:00: TABLET(S) [place] 00 BY MOUTH Medical EVERY FOUR Branch TO SIX HOURS NEEDED FOR PAIN. amoxicillin 2020-05 Yes TAKE ONE Un maren 500 mg 2-06 (1) ity of capsule 00:00: [place](S) [place] 00 BY MOUTH Medical EVERY Branch EIGHT HOURS UNTIL FINISHED. chlorhexidi 2020-05 Yes SWISH AND U nivers ne 0.12 % 2-06 SPIT 15 ity of mouthwash 00:00: ML(S) FOR [place] 00 THIRTY Medical SECONDS Branch TWICE DAILY. ibuprofen 2020-05 Yes TAKE ONE Univ ers 800 mg 2-06 (1) ity of tablet 00:00: TABLET(S) [place] 00 BY MOUTH Medical EVERY FOUR Branch TO SIX HOURS NEEDED FOR PAIN. amoxicillin 2020-05 Yes TAKE ONE Un maren 500 mg 2-06 (1) ity of capsule 00:00: CAP[place](S) [place] 00 BY MOUTH Medical EVERY Branch EIGHT HOURS UNTIL FINISHED. chlorhexidi 2020-05 Yes SWISH AND U nivers ne 0.12 % 2-06 SPIT 15 ity of mouthwash 00:00: ML(S) FOR [place] 00 THIRTY Medical SECONDS Branch TWICE DAILY. ibuprofen 2020-05 Yes TAKE ONE Univ ers 800 mg 2-06 (1) ity of tablet 00:00: TABLET(S) [place] 00 BY MOUTH Medical EVERY FOUR Branch TO SIX HOURS NEEDED FOR PAIN. amoxicillin 2020-05 Yes TAKE ONE Un maren 500 mg 2-06 (1) ity of capsule 00:00: CAPSULE(S) [place] 00 BY MOUTH Medical EVERY Branch EIGHT HOURS UNTIL FINISHED. chlorhexidi 2020-05 Yes SWISH AND U nivers ne 0.12 % 2-06 SPIT 15 ity of mouthwash 00:00: ML(S) FOR [place] 00 THIRTY Medical SECONDS Branch TWICE DAILY. ibuprofen 2020-05 Yes TAKE ONE Univ ers 800 mg 2-06 (1) ity of tablet 00:00: TABLET(S) [place] 00 BY MOUTH Medical EVERY FOUR Branch TO SIX HOURS NEEDED FOR PAIN. amoxicillin 2020-05 Yes TAKE ONE Un maren 500 mg 2-06 (1) ity of capsule 00:00: CAPSULE(S) [place] 00 BY MOUTH Medical EVERY Branch EIGHT HOURS UNTIL FINISHED. chlorhexidi 2020-05 Yes SWISH AND U nivers ne 0.12 % 2-06 SPIT 15 ity of mouthwash 00:00: ML(S) FOR [place] 00 THIRTY Medical SECONDS Branch TWICE DAILY. ibuprofen 2020-05 Yes TAKE ONE Univ ers 800 mg 2-06 (1) ity of tablet 00:00: TABLET(S) [place] 00 BY MOUTH Medical EVERY FOUR Branch TO SIX HOURS NEEDED FOR PAIN. amoxicillin 2020-05 Yes TAKE ONE Un maren 500 mg 2-06 (1) ity of capsule 00:00: CAPSULE(S) [place] 00 BY MOUTH Medical EVERY Branch EIGHT HOURS UNTIL FINISHED. chlorhexidi 2020-05 Yes SWISH AND U nivers ne 0.12 % 2-06 SPIT 15 ity of mouthwash 00:00: ML(S) FOR [place] 00 THIRTY Medical SECONDS Branch TWICE DAILY. ibuprofen 2020-05 Yes TAKE ONE Univ ers 800 mg 2-06 (1) ity of tablet 00:00: TABLET(S) [place] 00 BY MOUTH Medical EVERY FOUR Branch TO SIX HOURS NEEDED FOR PAIN. colchicine 2020-05 Yes .6mg Take 0.6 Uni vers 0.6 mg 1-04 mg by ity of tablet 00:00: mouth [place] 00 daily. Medical Branch allopurinoL 2020-05 Yes 300mg Take 300 U nivers 300 mg 1-04 mg by ity of tablet 00:00: mouth [place] 00 daily. Medical Branch colchicine 2020-05 Yes .6mg Take 0.6 Uni vers 0.6 mg 1-04 mg by ity of tablet 00:00: mouth [place] 00 daily. Medical Branch allopurinoL 2020-05 Yes 300mg Take 300 U nivers 300 mg 1-04 mg by ity of tablet 00:00: mouth [place] 00 daily. Medical Branch colchicine 2020-05 Yes .6mg Take 0.6 Uni vers 0.6 mg 1-04 mg by ity of tablet 00:00: mouth [place] 00 daily. Medical Branch allopurinoL 2020-05 Yes 300mg Take 300 U nivers 300 mg 1-04 mg by ity of tablet 00:00: mouth [place] 00 daily. Medical Branch colchicine 2020-05 Yes .6mg Take 0.6 Uni vers 0.6 mg 1-04 mg by ity of tablet 00:00: mouth [place] 00 daily. Medical Branch allopurinoL 2020-05 Yes 300mg Take 300 U nivers 300 mg 1-04 mg by ity of tablet 00:00: mouth [place] 00 daily. Medical Branch colchicine 2020-05 Yes .6mg Take 0.6 Uni vers 0.6 mg 1-04 mg by ity of tablet 00:00: mouth [place] 00 daily. Medical Branch allopurinoL 2020-05 Yes 300mg Take 300 U nivers 300 mg 1-04 mg by ity of tablet 00:00: mouth [place] 00 daily. Medical Branch colchicine 2020-05 Yes .6mg Take 0.6 Uni vers 0.6 mg 1-04 mg by ity of tablet 00:00: mouth [place] 00 daily. Medical Branch allopurinoL 2020-05 Yes 300mg Take 300 U nivers 300 mg 1-04 mg by ity of tablet 00:00: mouth [place] 00 daily. Medical Branch colchicine 2020-05 Yes .6mg Take 0.6 Uni vers 0.6 mg 1-04 mg by ity of tablet 00:00: mouth [place] 00 daily. Medical Branch allopurinoL 2020-05 Yes 300mg Take 300 U nivers 300 mg 1-04 mg by ity of tablet 00:00: mouth [place] 00 daily. Medical Branch methylPREDN 2020-05 Yes USE Univ ers ISolone 4 0-14 DIRECTED ity of mg tablets 00:00: BY PACKAGE [place] 00 [facility] Medical NS. Branch clindamycin 2020-05 Yes TAKE ONE Un maren 300 mg 0-14 (1) ity of capsule 00:00: [place](S[place] 00 [place] [facility] Medical EVERY SIX Branch HOURS FOR 10 DAYS. methylPREDN 2020-05 Yes USE Univ ers ISolone 4 0-14 DIRECTED ity of mg tablets 00:00: BY PACKAGE [place] 00 [facility] Medical NS. Branch clindamycin 2020-05 Yes TAKE ONE Un maern 300 mg 0-14 (1) ity of capsule 00:00: CAP[place]LE(S[place] 00 [place] [facility] Medical EVERY SIX Branch HOURS FOR 10 DAYS. methylPREDN 2020-05 Yes USE Univ ers ISolone 4 0-14 DIRECTED ity of mg tablets 00:00: BY PACKAGE [place] 00 [facility] Medical NS. Branch clindamycin 2020-05 Yes TAKE ONE Un maren 300 mg 0-14 (1) ity of capsule 00:00: CAP[place](S[place] 00 [place] [facility] Medical EVERY SIX Branch HOURS FOR 10 DAYS. methylPREDN 2020-05 Yes USE Univ ers ISolone 4 0-14 DIRECTED ity of mg tablets 00:00: BY PACKAGE [place] 00 [facility] Medical NS. Branch clindamycin 2020-05 Yes TAKE ONE Un ma[place] 300 mg 0-14 (1) ity of capsule 00:00: CAPSULE(S[place] 00 [place] [facility] Medical EVERY SIX Branch HOURS FOR 10 DAYS. methylPREDN 2020-05 Yes USE Univ ers ISolone 4 0-14 DIRECTED ity of mg tablets 00:00: BY PACKAGE [place] 00 [facility] Medical NS. Branch clindamycin 2020-05 Yes TAKE ONE Un ma[place] 300 mg 0-14 (1) ity of capsule 00:00: CAPSULE(S) [place] 00 BY MOUTH Medical EVERY SIX Branch HOURS FOR 10 DAYS. methylPREDN 2020-05 Yes USE Univ ers ISolone 4 0-14 DIRECTED ity of mg tablets 00:00: BY PACKAGE [place] 00 [employer] Medical NS. Branch clindamycin 2020-05 Yes TAKE ONE Un ma[place] 300 mg 0-14 (1) ity of capsule 00:00: CAPSULE(S) [place] 00 BY MOUTH Medical EVERY SIX Branch HOURS FOR 10 DAYS. methylPREDN 2020-05 Yes USE Univ ers ISolone 4 0-14 DIRECTED ity of mg tablets 00:00: BY PACKAGE [place] 00 [employer] Medical NS. Branch clindamycin 2020-05 Yes TAKE ONE Un ma[place] 300 mg 0-14 (1) ity of capsule 00:00: CAPSULE(S) [place] 00 BY MOUTH Medical EVERY SIX Branch HOURS FOR 10 DAYS. Vital Signs Vital Name Observation Time Observation Value Comments Source Systolic blood 2021-04-28 19:19:00 147 mm[facility]Hg[facility] Diastolic blood 2021-04-28 19:19:00 99 mm[Hg] [facility] of [facility] Heart rate 2021-04-28 19:14:00 72 /min [facility] Body temperature 2021-04-28 19:14:00 36.67 Bessie [facility] Respiratory rate 2021-04-28 19:14:00 18 /min [facility] Body height 2021-04-28 19:14:[address] [facility] Body weight 2021-04-28 19:14:[address] [facility] BMI 2021-04-28 19:14:00 55.20 kg/m2 [facility] Oxygen saturation in 2021-04-28 19:14:00 97 /min [facility] blood by [facility] Pulse oximetry Branch Procedures Procedure Date / Time Performed Performing Clinician [facility] e ASSIGNMENT OF BENEFITS 2021-06-22 17:51:43 Doctor Unassigned, No [facility] Medical Branch Encounters Start End Encounter Admission Attending Care Care Encounter Source Date/Time Date/Time Type Type Clinicians Facility Department ID 2021-06-23 2021-06-23 Telephone ADRIENNE Hernandez [id number] Univers 00:00:00 00:00:00 Mahendra ANTONI [id number] it y of HOSPITAL [id number] Real as [phone] [facility] [address] [place] 2021-06-22 2021-06-22 Outpatient R [facility] [id number] Univers 14:00:00 14:00:00 [id number] ity of [facility] 2021-06-22 2021-06-22 [id number] Univers 14:00:00 12:18:27 LEON suny o f [facility] 2021-06-22 2021-06-22 Orders Doctor DELEON [id number] Univers 00:00:00 00:00:00 Only Unassigned, ANTONI [id number] ity of [place] [facility] [id number] Real as [phone] [facility] [address] [place] 2021-06-22 2021-06-22 Letter Doctor ADRIENNE [id number] Univers 00:00:00 00:00:00 (Out) Unassigned, ANTONI [id number] ity of [place] [facility] [id number] Rela as [phone] [facility] 044 [place] 2021-06-22 2021-06-22 Letter Doctor DELEON [id number] Univers 00:00:00 00:00:00 (Out) Unassigned, ANTONI [id number] ity of [place] [facility] [id number] Real as [id number] [facility] 044 [place] 2021-05-25 2021-05-25 Whitley Heard [facility] [id number] Univers 00:00:00 00:00:00 [facility] [id number] it y of [place] [id number] Real as HELEN?BLEA [id number] [address] MEDICAL OFFICE BUILDING 2021-04-29 2021-04-29 Letter ADRIENNE Carreon [id number] Univers 00:00:00 00:00:00 (Out) Ena CORRALES [id number] it y of [facility] [id number] Real as [id number] [address] 2021-04-28 2021-04-28 Zamzam Heard [facility] [id number] Univers 13:40:00 13:40:[address] [facility] [id number] it y of [place] [id number] Real as HELEN?BLEA [phone] [address] MEDICAL OFFICE BUILDING 2021-04-28 2021-04-28 Outpatient R FÉLIX [facility] [id number] Univers 13:40:00 13:32:51 LINDSEY shell [facility] 2017-05-30 2017-05-30 Outpatient Jr Najera SETENT SETENT 1977 68 [facility] 09:39:00 09:39:00 [facility] Ear Nose and Throat 2017-05-24 2017-05-24 Outpatient Jr Najera SETENT SETENT 1971 26 [facility] 09:33:00 09:33:00 [facility] Ear Nose and Throat 2017-05-23 2017-05-23 Outpatient Jr Najera SETENT SETENT 1969 10 [facility] 08:47:00 08:47:00 [facility] Ear Nose and Throat Results This patient has no known results.
--- NOTE | 2021-08-09 08:52 | RAD REPORT ---
EXAM DESCRIPTION: RAD - Knee Left 3 View - 08/09/2021 8:32 am CLINICAL HISTORY: PAIN, history of gout COMPARISON: No comparisons FINDINGS: No fracture, dislocation or periosteal reaction.Small spurs are seen at the articular huey ins of the patella. Moderate joint effusion is suspected. Mild medial compartment marginal spurring c hanges are present. No joint space narrowing. No air or foreign body in the soft tissues. No abnormal calcifications. IMPRESSION: Mild patellofemoral and medial compartment degenerative changes are present with no acut e bone finding. Joint effusion is evident. Clinical concerns for internal derangement or occult bony injury could be further assessed with MR im aging.
[2021-08-09] MEDS ORDERED: LIDOCAINE 1% MPF 30 ML VIAL ONE (09:45)
[2021-08-09 11:29] LABS: Body Fluid Source SYNOVIAL; Color of fluid Yellow (COLORLESS)
[2021-08-09 11:30] LABS: Appearance SLT. TURBID (CLEAR); Body Fluid WBC 3791 /mm^3
--- NOTE | 2021-08-09 12:27 | EDPHYS ---
Physician Documentation [facility] Name: Mansoor Cerda Jr Age: 56 yrs Sex: Male : 1965 Arrival Date: 08/09/2021 Time: 07:18 Bed 8 Private MD: ED Physician Jose Ruiz HPI: 08/09 08:13 This 56 yrs old Male presents to ER via Wheelchair with complaints of Leg rn Pain, Knee Pain. 08:13 The patient presents with decreased range of motion, pain. The complaints affect the. rn 08:13 The complaints affect the left knee. Onset: The symptoms/episode began/occurred 2 rn day(s) ago. Modifying factors: The symptoms are alleviated by remaining still, the symptoms are aggravated by movement, weight bearing, bending knee. Associated signs and symptoms: Pertinent negatives fever, numbness, weakness. Severity of symptoms: At their worst the symptoms were moderate, in the emergency department the symptoms are unchanged. The patient has not experienced similar symptoms in the past. The patient has not recently seen a physician. Pt reports left knee pain, started 2 days ago, non-traumatic, no fever. Has been diagnosed clinically with gout in past but usually gets attacks left great toe and ankle. Has never had it in knee. Does not feel ill. . Historical: - Allergies: 07:25 Phenergan; jd3 - Home Meds: 07:25 lisinopril Oral [Active]; Zoloft 50 mg Oral tab 1 tab once daily [Active]; Allopurinol jd3 Oral [Active]; Omeprazole Oral [Active]; - PMHx: 07:25 GERD; Gout; Kidney stones; Hypertension; Anxiety; jd3 - PSHx: 07:25 Cholecystectomy; jd3 - Immunization history:: Adult Immunizations up to date, Client reports having NOT received the Covid vaccine. Flu vaccine is not up to date. - Social history:: Smoking status: Patient denies any tobacco usage or history of. - Family history:: not pertinent. - Hospitalizations: : No recent hospitalization is reported. ROS: 08:13 Constitutional: Negative for fever, chills, and weight loss, Eyes: Negative for injury, rn pain, redness, and discharge, Neck: Negative for injury, pain, and swelling, Cardiovascular: Negative for chest pain, palpitations, and edema, Respiratory: Negative for shortness of breath, cough, wheezing, and pleuritic chest pain, Abdomen/GI: Negative for abdominal pain, nausea, vomiting, diarrhea, and constipation, Back: Negative for injury and pain, MS/Extremity: + left knee pain and swelling Skin: Negative for injury, rash, and discoloration, Neuro: Negative for headache, weakness, numbness, tingling, and seizure. Exam: 08:13 Constitutional: This is a well developed, well nourished patient who is awake, alert, rn antalgic gait from wheelchair to bed Head/Face: Normocephalic, atraumatic. Eyes: Periorbital areas with no swelling, redness, or edema. Cardiovascular: Regular rate and rhythm. No pulse deficits. Respiratory: No increased work of breathing, no retractions or nasal flaring. Abdomen/GI: Soft, non-tender Skin: Warm, dry MS/ Extremity: Pulses equal, no cyanosis. + mild left knee swelling, no erythema or overlying skin changes. + painful ROM left knee. Neuro: Awake and alert, GCS 15 Vital Signs: 07:26 BP 167 / 103; Pulse 71; Resp 19 S; Temp 97.1(TE); Pulse Ox 96% on R/A; Weight 153.31 kg jd3 (R); Height 5 ft. 6 in. (167.64 cm); Pain 10/10; 12:45 BP 170 / 90; Pulse 67; Resp 18 S; Pulse Ox 97% on R/A; Pain 7/10; jg9 07:26 Body Mass Index 54.55 (153.31 kg, 167.64 cm) jd3 Procedures: 09:50 Joint Treatment: Aspiration of left knee using 22g needle. Removed 20 ml's of clear rn fluid, yellow fluid, Specimen sent to lab. Dressed with band aid, Patient tolerated well. of left knee Used 5 cc lidocaine without epi for anesthesia. MDM: 07:27 Patient medically screened. rn 12:21 Differential diagnosis: knee effusion, inflammatory arthritis, septic arthritis, gout, rn pseudogout. Data reviewed: vital signs, nurses notes, lab test result(s), radiologic studies, plain films, and as a result, I will discharge patient. Counseling: I had a detailed discussion with the patient and/or guardian regarding: the historical points, exam findings, and any diagnostic results supporting the discharge/admit diagnosis, lab results, radiology results, the need for outpatient follow up, to return to the emergency department if symptoms worsen or persist or if there are any questions or concerns that arise at home. Response to treatment: the patient's symptoms have mildly improved after treatment, and as a result, I will discharge patient. Special discussion: I discussed with the patient/guardian in detail that at this point there is no indication for admission to the hospital. It is understood, however, that if the symptoms persist or worsen the patient needs to return immediately for re-evaluation. Based on the history and exam findings, there is no indication for further emergent testing or inpatient evaluation. I discussed with the patient/guardian the need to see the orthopedic surgeon for further evaluation of the symptoms. ED course: Knee aspirated after elevated CRP, shows approx 4000 WBC, in inflammatory range, neg gram stain, normal WBC and procal. Neg ESR. Consulted with Dr. Marley, states is more in inflammatory range, not septic, ok to dc. . 08/09 07:38 Order name: CBC with Diff; Complete Time: 09:08/09 07:38 Order name: Basic Metabolic Panel; Complete Time: 08:18 08/09 07:38 Order name: Protime (+inr); Complete Time: 08:18 08/09 07:38 Order name: Ptt, Activated; Complete Time: 08:18 08/09 07:38 Order name: Sed Rate; Complete Time: 09:08/09 07:38 Order name: CRP; Complete Time: 08:18 08/09 07:38 Order name: XRAY Knee LEFT 3 view; Complete Time: 09:08/09 07:54 Order name: Procalcitonin; Complete Time: 09:08/09 07:54 Order name: Uric Acid; Complete Time: 09:08/09 09:50 Order name: Fluid Cell Count,Body; Complete Time: 11:40 08/09 09:50 Order name: Fluid Crystals; Complete Time: 10:53 08/09 09:50 Order name: Body Fluid Culture; Complete Time: 12:21 08/09 07:38 Order name: IV Start; Complete Time: 08:20 08/09 09:17 Order name: Surgical Consent: consent for knee aspiration; Complete Time: 09:40 rn Administered Medications: 08:05 Drug: Zofran (Ondansetron) 4 mg Route: IVP; Site: right antecubital; jg9 08:56 Follow up: Response: No adverse reaction jg9 08:10 Drug: NS 0.9% 1000 ml Route: IV; Rate: 1000 ml; Site: right antecubital; jg9 11:00 Follow up: IV Status: Completed infusion; IV Intake: 1000ml jg9 08:10 Drug: Colcrys (colchicine) 1.2 mg Route: PO; jg9 08:55 Follow up: Response: No adverse reaction; Pain is unchanged, physician notified jg9 08:15 Drug: morphine 4 mg Route: IVP; Site: right antecubital; jg9 08:56 Follow up: Response: No adverse reaction; Pain is unchanged, physician notified jg9 09:40 Drug: morphine 4 mg Route: IVP; Site: right antecubital; jg9 10:00 Follow up: Response: No adverse reaction; Pain is decreased jg9 09:43 Drug: Lidocaine (1 %) 1 vials {Note: left knee.} Volume: 5 ml; Route: Infiltration; jg9 Site: affected area; 12:39 Follow up: Response: No adverse reaction; Pain is decreased jg9 12:55 Drug: morphine 4 mg Route: IVP; Site: right antecubital; jg9 13:02 Follow up: Response: No adverse reaction; Medication administered at discharge. jg9 12:55 Drug: Ketorolac 15 mg Route: IVP; Site: right antecubital; jg9 13:02 Follow up: Response: No adverse reaction; Medication administered at discharge. jg9 12:58 Drug: Decadron - Dexamethasone 10 mg Route: IVP; Site: right antecubital; jg9 13:02 Follow up: Response: No adverse reaction; Medication administered at discharge. jg9 Disposition Summary: 08/09/21 12:26 Discharge Ordered Location: Home rn Problem: new rn Symptoms: have improved rn Condition: Stable rn Diagnosis - Effusion, left knee rn Followup: rn - With: Jose Marley MD - When: As needed - Reason: Recheck today's complaints, Re-evaluation by your physician Discharge Instructions: - Discharge Summary Sheet rn - Knee Effusion rn - Knee Arthrocentesis rn Forms: - Medication Reconciliation Form rn - Thank You Letter rn - Antibiotic rn supplemental - Prescription Opioid Use rn - Work release form jg9 Prescriptions: - Tramadol 50 mg Oral Tablet - take 1 tablet by ORAL route every 8 hours as needed; 15 tablet; Refills: 0, rn Product Selection Permitted Signatures: Dispatcher [employer] Jose Crowe MD MD rn Davies, Jonathon, RN RN jd3 Luz Elena Bedoya RN RN jg9
--- NOTE | 2021-08-09 12:27 | ER ---
Nurse's Notes [facility] Name: Mansoor Cerda Jr Age: 56 yrs Sex: Male : 1965 Arrival Date: 08/09/2021 Time: 07:18 Bed 8 Private MD: Diagnosis: Effusion, left knee Presentation: 08/09 07:23 Chief complaint: Patient states: "My left leg is hurting me. I don't know if it is gout jd3 or what, but I did not injure it that I know of.". Coronavirus screen: At this time, the client does not indicate any symptoms associated with coronavirus-19. Ebola Screen: No symptoms or risks identified at this time. Initial Sepsis Screen: Does the patient meet any 2 criteria? No. Patient's initial sepsis screen is negative. Does the patient have a suspected source of infection? No. Patient's initial sepsis screen is negative. Risk Assessment: Do you want to hurt yourself or someone else? Patient reports no desire to harm self or others. Onset of symptoms was August 07, 2021. 07:23 Method Of Arrival: Wheelchair jd3 07:23 Acuity: CARINA 3 jd3 Triage Assessment: 07:45 General: Appears uncomfortable, Behavior is calm, cooperative. jg9 07:45 Pain: Complains of pain in left leg and left knee. jg9 Historical: - Allergies: 07:25 Phenergan; jd3 - Home Meds: 07:25 lisinopril Oral [Active]; Zoloft 50 mg Oral tab 1 tab once daily [Active]; Allopurinol jd3 Oral [Active]; Omeprazole Oral [Active]; - PMHx: 07:25 GERD; Gout; Kidney stones; Hypertension; Anxiety; jd3 - PSHx: 07:25 Cholecystectomy; jd3 - Immunization history:: Adult Immunizations up to date, Client reports having NOT received the Covid vaccine. Flu vaccine is not up to date. - Social history:: Smoking status: Patient denies any tobacco usage or history of. - Family history:: not pertinent. - Hospitalizations: : No recent hospitalization is reported. Screenin:00 Abuse screen: Denies threats or abuse. Denies injuries from another. Nutritional jg9 screening: No deficits noted. Tuberculosis screening: No symptoms or risk factors identified. Fall Risk None identified. Vital Signs: 07:26 BP 167 / 103; Pulse 71; Resp 19 S; Temp 97.1(TE); Pulse Ox 96% on R/A; Weight 153.31 kg jd3 (R); Height 5 ft. 6 in. (167.64 cm); Pain 10/10; 12:45 BP 170 / 90; Pulse 67; Resp 18 S; Pulse Ox 97% on R/A; Pain 7/10; jg9 07:26 Body Mass Index 54.55 (153.31 kg, 167.64 cm) jd3 ED Course: 07:18 Patient arrived in ED. ja2 07:24 Triage completed. jd3 07:27 Jose Ruiz MD is Attending Physician. rn 07:27 Arm band placed on. jd3 07:50 Inserted saline lock: 22 gauge in right antecubital area, using aseptic technique. jg9 Blood collected. 08:19 Nanette Tolentino, RN is Primary Nurse. ww 08:34 XRAY Knee LEFT 3 view In Process Unspecified. EDMS 09:30 fluid removed was clear, yellow, Specimen sent to lab. jg9 10:00 Patient has correct armband on for positive identification. Bed in low position. Call jg9 light in reach. Side rails up X 1. 12:25 Jose Marley MD is Referral Physician. rn 13:05 IV discontinued. jg9 Administered Medications: 08:05 Drug: Zofran (Ondansetron) 4 mg Route: IVP; Site: right antecubital; jg9 08:56 Follow up: Response: No adverse reaction jg9 08:10 Drug: NS 0.9% 1000 ml Route: IV; Rate: 1000 ml; Site: right antecubital; jg9 11:00 Follow up: IV Status: Completed infusion; IV Intake: 1000ml jg9 08:10 Drug: Colcrys (colchicine) 1.2 mg Route: PO; jg9 08:55 Follow up: Response: No adverse reaction; Pain is unchanged, physician notified jg9 08:15 Drug: morphine 4 mg Route: IVP; Site: right antecubital; jg9 08:56 Follow up: Response: No adverse reaction; Pain is unchanged, physician notified jg9 09:40 Drug: morphine 4 mg Route: IVP; Site: right antecubital; jg9 10:00 Follow up: Response: No adverse reaction; Pain is decreased jg9 09:43 Drug: Lidocaine (1 %) 1 vials {Note: left knee.} Volume: 5 ml; Route: Infiltration; jg9 Site: affected area; 12:39 Follow up: Response: No adverse reaction; Pain is decreased jg9 12:55 Drug: morphine 4 mg Route: IVP; Site: right antecubital; jg9 13:02 Follow up: Response: No adverse reaction; Medication administered at discharge. jg9 12:55 Drug: Ketorolac 15 mg Route: IVP; Site: right antecubital; jg9 13:02 Follow up: Response: No adverse reaction; Medication administered at discharge. jg9 12:58 Drug: Decadron - Dexamethasone 10 mg Route: IVP; Site: right antecubital; jg9 13:02 Follow up: Response: No adverse reaction; Medication administered at discharge. jg9 Intake: 11:00 IV: 1000ml; Total: 1000ml. jg9 Outcome: 12:26 Discharge ordered by . rn 13:05 Discharged to home via wheelchair. jg9 13:05 Condition: improved 13:05 Discharge instructions given to patient, family, Instructed on discharge instructions, follow up and referral plans. Demonstrated understanding of instructions, follow-up care, medications, Prescriptions given X 1. 13:06 Patient left the ED. jg9 Signatures: Dispatcher [employer] EDMS Jose Ruiz MD MD rn Davies, Jonathon, RN RN jd3 Alexander, Jessica ja2 Gilmore, Jennifer, RN RN jg9 Nanette Tolentino RN RN ww Corrections: (The following items were deleted from the chart) 13:04 10:30 General: Appears uncomfortable, Behavior is calm, cooperative, jg9 jg9
[2021-08-09] MEDS ORDERED: dexAMETHasone 10 MG/ML VIAL ONE (12:46)
[2021-08-09] MEDS ORDERED: KETOROLAC 30 MG/ML INJ ONE (12:47)
[2021-08-09 14:25] VITALS: TEMP 97.1
[2021-08-09 14:26] VITALS: BP 170/90; O2SAT 97
== END 2021-08-09 13:06 | disposition home or self-care (01) ==
LOC: ER 07:12
PROC: 0S9D3ZX Drainage of Left Knee Joint, Percutaneous Approach, Diagnostic (ICD-10-PCS; principal; 2021-08-09)
DX: M25.462 Effusion, left knee (principal); M10.9 Gout, unspecified; I10 Essential (primary) hypertension; Z87.442 Personal history of urinary calculi; Z88.8 Allergy status to other drugs, medicaments and biological substances
CPT/HCPCS: 96361; 87070; 85025; 80048; 36415; 89050; 85610; 84550; 85730; 85652; 89060; 84145; 86140; 73562; 96375; 96374; 99284; 10021; J1100; J7030; J2405

== ENCOUNTER 2024-05-17 14:29 | Emergency (ER) | payer BC, OTHER ==
[2024-05-17 17:34] LABS: Absolute Basophils 0.1 K/uL (0-0.5); Absolute Eosinophils 0.1 K/uL (0-0.5); Absolute Lymphocytes (CBC) 2.2 K/uL (0.7-4.9); Absolute Monocytes 0.8 K/uL (0.1-1.3); Absolute Neutrophil 5.8 K/uL (1.8-8.0); Basophils % 0.9 % (0-1.3); Eosinophils % 1.6 % (0-4.4); Hematocrit 45.8 % (39.6-49.0); Hemoglobin 16.1 g/dL (13.6-17.9); MCH 29.8 pg (27.0-35.0); MCHC 35.1 g/dL (32.0-36.0); MCV 84.7 fL (80-100); MPV 10.5 fL (7.6-11.3); Monocytes % 8.6 % (3.3-12.3); Neutrophils % 64.9 % (41.7-73.7); Platelets 217 thou/uL (152-406); RBC Red Blood Cell Count 5.41 M/uL (4.33-5.43); Red Cell Distribution Width 13.9 % (12.1-15.2)
[2024-05-17 17:48] LABS: Albumin 3.7 g/dL (3.4-5.0); Albumin/Globulin Ratio 0.9 (1.1-1.8); Anion Gap 10.8 mEq/L (5.0-15.0); Bilirubin Total 1.4 mg/dL (0.2-1.0); Globulin 4.1 g/dL (2.3-3.5); Potassium 3.8 mEq/L (3.5-5.1); Protein, Total 7.8 g/dL (6.4-8.2)
--- NOTE | 2024-05-17 18:43 | ER ---
Nurse's Notes [facility] Name: Mansoor Cerda Jr Age: 58 yrs Sex: Male : 1965 Arrival Date: 05/17/2024 Time: 14:29 Bed 17 Private MD: Diagnosis: Other malaise and fatigue Presentation: 05/17 15:01 Chief complaint: Patient states: had endoscopy last week, has reflux really bad, ko1 started protonix and colestipol, Im feeling weak and drained. Coronavirus screen: At this time, the client does not indicate any symptoms associated with coronavirus-19. Ebola Screen: No symptoms or risks identified at this time. Initial Sepsis Screen: Does the patient meet any 2 criteria? No. Patient's initial sepsis screen is negative. Does the patient have a suspected source of infection? No. Patient's initial sepsis screen is negative. Risk Assessment: Do you want to hurt yourself or someone else? Patient reports no desire to harm self or others. Onset of symptoms is unknown. 15:01 Method Of Arrival: Ambulatory ko1 15:01 Acuity: CARINA 3 ko1 Triage Assessment: 15:06 General: Appears in no apparent distress. Behavior is calm, cooperative, appropriate ko1 for age. Pain: Denies pain. Historical: - Allergies: 15:06 Phenergan; ko1 - Home Meds: 15:06 lisinopril Oral [Active]; Allopurinol Oral [Active]; Omeprazole Oral [Active]; Zoloft ko1 50 mg Oral tab 1 tab once daily [Active]; - PMHx: 15:06 Anxiety; GERD; Gout; Hypertension; Kidney stones; ko1 - PSHx: 15:06 Cholecystectomy; ko1 - Immunization history:: Adult Immunizations unknown. - Infectious Disease History:: Denies. - Social history:: Smoking status: Patient denies any tobacco usage or history of. - Family history:: not pertinent. - Hospitalizations: : No recent hospitalization is reported. Screenin:13 [facility] ED Fall Risk Assessment (Adult) History of falling in the last 3 months, os including since admission No falls in past 3 months (0 pts) Confusion or Disorientation No (0 pts) Intoxicated or Sedated No (0 pts) Impaired Gait No (0 pts) Mobility Assist Device Used No (0 pt) Altered Elimination No (0 pt) Score/Fall Risk Level 0 - 2 = Low Risk. Abuse screen: Denies threats or abuse. Nutritional screening: No deficits noted. Tuberculosis screening: No symptoms or risk factors identified. Vital Signs: 15:01 BP 147 / 92; Pulse 65; Resp 16; Temp 98.3; Pulse Ox 100% ; ko1 18:47 BP 164 / 89; Pulse 81; Resp 17; Pulse Ox 97% on R/A; os ED Course: 14:33 Patient arrived in ED. ra3 15:03 Jose Ruiz MD is Attending Physician. rn 15:06 Triage completed. ko1 15:06 Arm band placed on right wrist. Patient placed in waiting room, Patient notified of ko1 wait time. 18:08 Clayton Hayes, RN is Primary Nurse. os 19:13 Patient has correct armband on for positive identification. Placed in gown. Bed in low os position. Call light in reach. Side rails up X2. Adult w/ patient. Provided Education on: . 19:13 No provider procedures requiring assistance completed. IV discontinued, intact, os bleeding controlled, No redness/swelling at site. Pressure dressing applied. Administered Medications: No medications were administered Medication: 19:26 VIS not applicable for this client. os Outcome: 18:42 Discharge ordered by . rn 19:26 Discharged to home ambulatory, os 19:26 Condition: stable 19:26 Condition: stable 19:26 Discharge instructions given to patient, family, 19:26 Discharge instructions given to patient, family, 19:27 Patient left the ED. os Signatures: Jose Ruiz MD MD rn Oliver, Kathy, RN RN ko Clayton Hayes, MARY HERNANDEZ os Iva Valadez ra3
--- NOTE | 2024-05-17 18:43 | EDPHYS ---
Physician Documentation [facility] Name: Mansoor Cerda Jr Age: 58 yrs Sex: Male : 1965 Arrival Date: 05/17/2024 Time: 14:29 Bed 17 Private MD: ED Physician Jose Ruiz HPI: 05/17 15:27 This 58 yrs old Male presents to ER via Ambulatory with complaints of Fatigue rn from medications. 15:33 Patient reports feeling generalized fatigue and malaise for a few weeks after starting rn antacid medication. Patient reports saw GI and prescribed antacid medication after possibly ulcers or gastritis seen with biopsies taken. Patient reports since taking these new medications patient has felt generalized weakness and malaise. No vomiting. No blood in stool. No fever or chills. No chest pain or shortness of breath. Does not feel ill. No other changes in medication otherwise.. Onset: The symptoms/episode began/occurred 2 week(s) ago. Severity of symptoms: At their worst the symptoms were mild in the emergency department the symptoms are unchanged. The patient has not experienced similar symptoms in the past. The patient has been recently seen by a physician:. Historical: - Allergies: 15:06 Phenergan; ko1 - Home Meds: 15:06 lisinopril Oral [Active]; Allopurinol Oral [Active]; Omeprazole Oral [Active]; Zoloft ko1 50 mg Oral tab 1 tab once daily [Active]; - PMHx: 15:06 Anxiety; GERD; Gout; Hypertension; Kidney stones; ko1 - PSHx: 15:06 Cholecystectomy; ko1 - Immunization history:: Adult Immunizations unknown. - Infectious Disease History:: Denies. - Social history:: Smoking status: Patient denies any tobacco usage or history of. - Family history:: not pertinent. - Hospitalizations: : No recent hospitalization is reported. ROS: 15:33 Constitutional: Negative for fever, chills, and weight loss, Cardiovascular: Negative rn for chest pain, palpitations, and edema, Respiratory: Negative for shortness of breath, cough, wheezing, and pleuritic chest pain, Abdomen/GI: Negative for abdominal pain, nausea, vomiting, diarrhea, and constipation, MS/Extremity: Negative for injury and deformity, Skin: Negative for injury, rash, and discoloration, Neuro: Positive for generalized fatigue and malaise Exam: 15:33 Constitutional: This is a well developed, well nourished patient who is awake, alert, rn and in no acute distress. Head/Face: Normocephalic, atraumatic. ENT: Dry mucous membranes Cardiovascular: Regular rate and rhythm. No pulse deficits. Respiratory: No increased work of breathing, no retractions or nasal flaring. Abdomen/GI: Soft, non-tender Skin: Warm, dry, no rash MS/ Extremity: Pulses equal, no cyanosis. Neuro: Awake and alert, GCS 15, oriented to person, place, time, and situation. Cranial nerves II-XII grossly intact. Motor strength 5/5 in all extremities. Sensory grossly intact. Cerebellar exam normal. Normal gait. Vital Signs: 15:01 BP 147 / 92; Pulse 65; Resp 16; Temp 98.3; Pulse Ox 100% ; ko1 18:47 BP 164 / 89; Pulse 81; Resp 17; Pulse Ox 97% on R/A; os MDM: 15:03 Medical Screening Exam initiated rn 18:40 Differential Diagnosis Side effect of medication, dehydration, generalized malaise and rn fatigue. Data reviewed: vital signs, nurses notes, lab test result(s), and as a result, I will discharge patient. Counseling: I had a detailed discussion with the patient and/or guardian regarding the historical points, exam findings, and any diagnostic results supporting the discharge/admit diagnosis, lab results, the need for outpatient follow up, to return to the emergency department if symptoms worsen or persist or if there are any questions or concerns that arise at home. Response to treatment: the patient's symptoms have mildly improved after treatment, and as a result, I will discharge patient. Special discussion: I discussed with the patient/guardian in detail that at this point there is no indication for admission to the hospital. It is understood, however, that if the symptoms persist or worsen the patient needs to return immediately for re-evaluation. ED course: No acute findings and workup. No indication for emergent admission. Generalized malaise and fatigue without oxygen requirement/arrhythmia. Blood pressure slightly elevated. No renal failure or elevation of WBC. Not anemic. Will discharge home with return precautions and PCP follow-up.. 05/17 15:21 Order name: CMP; Complete Time: 18:14 rn 05/17 15:21 Order name: CBC with Diff; Complete Time: 18:14 rn 05/17 15:21 Order name: IV Start; Complete Time: 18:51 rn Administered Medications: No medications were administered Disposition Summary: 05/17/24 18:42 Discharge Ordered Notes: Location: Home rn Problem: an ongoing problem rn Symptoms: have improved rn Condition: Stable rn Diagnosis - Other malaise and fatigue rn Followup: rn - With: Private Physician - When: As needed - Reason: Recheck today's complaints, Re-evaluation by your physician Discharge Instructions: - Discharge Summary Sheet rn - Weakness rn - Fatigue rn Forms: - Medication Reconciliation Form rn - 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
[2024-05-17 19:32] VITALS: TEMP 98.3
[2024-05-17 19:33] VITALS: BP 164/89; O2SAT 97
== END 2024-05-17 19:27 | disposition home or self-care (01) ==
LOC: ER 14:29
DX: R53.81 Other malaise (principal); R53.83 Other fatigue; I10 Essential (primary) hypertension; F41.9 Anxiety disorder, unspecified
CPT/HCPCS: 36415; 80053; 85025; 99283

== ENCOUNTER 2024-05-31 11:22 | Emergency (ER) | payer OTHER ==
[2024-05-31 12:05] LABS: Absolute Basophils 0.1 K/uL (0-0.5); Absolute Eosinophils 0.1 K/uL (0-0.5); Absolute Lymphocytes (CBC) 1.8 K/uL (0.7-4.9); Absolute Monocytes 0.8 K/uL (0.1-1.3); Absolute Neutrophil 6.3 K/uL (1.8-8.0); Basophils % 0.9 % (0-1.3); Eosinophils % 0.7 % (0-4.4); Hematocrit 47.3 % (39.6-49.0); Hemoglobin 16.8 g/dL (13.6-17.9); Lymphocytes % 20.2 % (15.3-44.8); MCH 29.7 pg (27.0-35.0); MCHC 35.5 g/dL (32.0-36.0); MCV 83.7 fL (80-100); MPV 10.5 fL (7.6-11.3); Monocytes % 9.2 % (3.3-12.3); Platelets 251 thou/uL (152-406); RBC Red Blood Cell Count 5.66 M/uL (4.33-5.43); Red Cell Distribution Width 13.8 % (12.1-15.2)
[2024-05-31 12:21] LABS: Albumin 4.1 g/dL (3.4-5.0); Albumin/Globulin Ratio 0.9 (1.1-1.8); Anion Gap 10.8 mEq/L (5.0-15.0); Globulin 4.8 g/dL (2.3-3.5); Potassium 3.8 mEq/L (3.5-5.1); Protein, Total 8.9 g/dL (6.4-8.2)
[2024-05-31] MEDS ORDERED: FAMOTIDINE 20 MG/2 ML VIAL IV ONE (12:30)
[2024-05-31] MEDS ORDERED: METOCLOPRAMIDE 10 MG/2mL INJ ONE (12:30)
[2024-05-31] MEDS ORDERED: NA CHLORIDE 0.9% 1,000 ML ONE (12:31)
--- NOTE | 2024-05-31 13:14 | RAD REPORT ---
EXAMINATION: CT ABDOMEN AND PELVIS WITH CONTRAST CLINICAL INDICATION: Male, 58 years old.ABD PAIN TECHNIQUE: CT abdomen and pelvis was performed, after the administration of IV contrast, [facility] Axial, sagittal and coronal reconstructions were obtained. One or more of the following dose reduction techniques were used: Automated exposure control, adjustment of the mA and/o r kV according to patient size, and/or iterative reconstruction. Unless otherwise specified, incidental findings do not require dedicated imaging follow-up. [id number]. COMPARISON: 06/23/2016 FINDINGS: LOWER CHEST: No acute process identified.No significant pericardial effusion. Mild circumferential th ickening of the distal esophagus which could reflect esophagitis. UPPER GI: No significant abnormality. LIVER: Hepatic steatosis, but otherwise unremarkable. GALLBLADDER/BILE DUCTS: Cholecystectomy. No significant biliary ductal dilatation.? PANCREAS: No mass, ductal dilation, or nathen-pancreatic fluid. SPLEEN: Unremarkable. ADRENALS: No adrenal masses. KIDNEYS AND URETERS: No hydronephrosis.No suspicious renal mass.Nonobstructing stones in left kidney. ABDOMINAL AORTA AND OTHER VESSELS: Normal caliber aorta and IVC. PERITONEUM: No abnormal free fluid. No free air. LYMPH NODES: No pathologic lymphadenopathy. ABDOMINAL WALL: Small fat containing umbilical hernia. SMALL BOWEL/COLON: Small bowel has normal course and caliber. No colonic wall thickening or pericolon ic inflammatory changes.Normal appendix. Mild diverticulosis without diverticulitis. URINARY BLADDER: Underdistended but grossly unremarkable. REPRODUCTIVE ORGANS: Wedge-shaped area of enhancement at the left mid gland peripheral zone of the pr ostate. MUSCULOSKELETAL: No acute or suspicious osseous abnormality. ADDITIONAL FINDINGS: None. IMPRESSION: No acute or significant abnormalities seen in the abdomen or pelvis. Wedge-shaped area of possible hyperenhancement at the peripheral zone of the prostate on the left regina e. This is a nonspecific finding. Suggest correlation with PSA.
--- NOTE | 2024-05-31 14:08 | ER ---
Nurse's Notes [facility] Name: Mansoor Cerda Jr Age: 58 yrs Sex: Male : 1965 Arrival Date: 05/31/2024 Time: 11:22 Bed 19 Private MD: Diagnosis: Abdominal pain, Generalized;Nausea;Hepatic steatosis;Elevated bilirubin level;Abnormal CT finding in prostate Presentation: 05/31 11:32 Chief complaint: Patient states: Upper abdominal pain with nausea for 4 days. Admitted ll1 at [facility], waiting to see GI. Coronavirus screen: Client denies travel out of the [place] in the last 14 days. At this time, the client does not indicate any symptoms associated with coronavirus-19. Ebola Screen: Patient denies travel to an Ebola-affected area in the 21 days before illness onset. Initial Sepsis Screen: Does the patient meet any 2 criteria? No. Patient's initial sepsis screen is negative. Does the patient have a suspected source of infection? No. Patient's initial sepsis screen is negative. Risk Assessment: Do you want to hurt yourself or someone else? Patient reports no desire to harm self or others. Onset of symptoms was May 28, 2024. 11:32 Method Of Arrival: Ambulatory ll1 11:32 Acuity: CARINA 3 ll1 Triage Assessment: 11:33 General: Appears uncomfortable, Behavior is calm, cooperative, appropriate for age. ll1 Pain: Complains of pain in epigastric Pain currently is 3 out of 10 on a pain scale. Quality of pain is described as aching. GI: Reports upper abdominal pain, indigestion, intolerance of food, nausea, vomiting. Historical: - Allergies: 11:34 Phenergan; ll1 - PMHx: 11:34 Anxiety; GERD; Gout; Hypertension; Kidney stones; ll1 - PSHx: 11:34 Cholecystectomy; ll1 - Immunization history:: Adult Immunizations up to date. - Infectious Disease History:: Denies. - Social history:: Smoking status: Patient denies any tobacco usage or history of. Screenin:42 [facility] ED Fall Risk Assessment (Adult) History of falling in the last 3 months, kj2 including since admission No falls in past 3 months (0 pts) Confusion or Disorientation No (0 pts) Intoxicated or Sedated No (0 pts) Impaired Gait No (0 pts) Mobility Assist Device Used No (0 pt) Altered Elimination No (0 pt) Score/Fall Risk Level 0 - 2 = Low Risk Maintained a safe environment, Hourly rounding (assess needs \T\ fall precautionary measures) done. Abuse screen: Denies threats or abuse. Denies injuries from another. Nutritional screening: No deficits noted. Tuberculosis screening: No symptoms or risk factors identified. Assessment: 12:02 Reassessment: Patient and/or family updated on plan of care and expected duration. Pain ll1 level reassessed. 12:39 Reassessment: Patient appears in no apparent distress at this time. Patient and/or kj2 family updated on plan of care and expected duration. Pain level reassessed. Patient is alert, oriented x 3, equal unlabored respirations, skin warm/dry/pink. 13:52 Reassessment: Patient appears in no apparent distress at this time. Patient and/or kj2 family updated on plan of care and expected duration. Pain level reassessed. Patient is alert, oriented x 3, equal unlabored respirations, skin warm/dry/pink. 14:35 GI: Abdomen is non-distended. kj2 14:35 Reassessment: Patient appears in no apparent distress at this time. Patient and/or kj2 family updated on plan of care and expected duration. Pain level reassessed. Patient is alert, oriented x 3, equal unlabored respirations, skin warm/dry/pink. Vital Signs: 11:32 BP 137 / 94; Pulse 70; Resp 18; Temp 97.3; Pulse Ox 100% ; Weight 136.53 kg; Height 5 ll1 ft. 6 in. ; Pain 3/10; 12:40 BP 117 / 73; Pulse 64; Resp 20; Temp 98(O); Pulse Ox 99% on R/A; kj2 13:52 BP 128 / 68; Pulse 61; Resp 18; Pulse Ox 96% on R/A; kj2 14:35 BP 126 / 68; Pulse 60; Resp 20; Temp 98; Pulse Ox 100% on R/A; kj2 11:32 Body Mass Index 48.58 (136.53 kg, 167.64 cm) ll1 11:32 Pain Scale: Adult ll1 ED Course: 11:26 Patient arrived in ED. ra3 11:30 Arm band placed on. ll1 11:33 Triage completed. ll1 11:34 Denys Barrientos DO is Attending Physician. ms3 11:57 Initial lab(s) drawn, by me, sent to lab. Inserted saline lock: 22 gauge in right ll1 antecubital area, using aseptic technique. Blood collected. Flushed with 10 mL NS. 12:25 Patient placed in an exam room, on a stretcher. ll1 12:27 Heidi Galindo, RN is Primary Nurse. kj2 12:42 Patient has correct armband on for positive identification. Bed in low position. Call kj2 light in reach. Side rails up X 1. Adult w/ patient. Provided Education on: call light. 12:43 No provider procedures requiring assistance completed. kj2 13:01 CT Abd/Pelvis - IV Contrast Only In Process Unspecified. EDMS 14:06 Zana Reagan MD is Referral Physician. ms3 14:36 IV discontinued, intact, bleeding controlled, No redness/swelling at site. Pressure kj2 dressing applied. Administered Medications: 12:39 Drug: metoCLOPramide IVP 10 mg IVP once; over 1 to 2 minutes Route: IVP; Site: right kj2 antecubital; 14:40 Follow up: Response: No adverse reaction kj2 12:40 Drug: Famotidine IVP 20 mg IVP once; dilute with 10 mL 0.9% NaCl; give over 2 minutes kj2 Route: IVP; Site: right antecubital; 14:39 Follow up: Response: No adverse reaction kj2 12:40 Drug: NS 0.9% IV 1000 ml IV at 1 bolus Per protocol; to be given as a bolus over 60 kj2 minutes Route: IV; Rate: 1 bolus; Site: right antecubital; 14:40 Follow up: IV Status: Completed infusion; IV Intake: 1000ml kj2 Medication: 12:42 VIS not applicable for this client. kj2 Intake: 14:40 IV: 1000ml; Total: 1000ml. kj2 Outcome: 14:07 Discharge ordered by . ms3 14:34 Discharged to home ambulatory, with family, kj2 14:34 Condition: stable 14:34 Discharge instructions given to patient, family, Instructed on discharge instructions, follow up and referral plans. medication usage, Demonstrated understanding of instructions, follow-up care, medications, 14:39 Patient left the ED. kj2 Signatures: Dispatcher [employer] Gallito Young, RN RN ll1 Denys Barrientos DO DO ms3 Iva Valadez ra3 Heidi Galindo, MARY RN kj2 Corrections: (The following items were deleted from the chart) 11:34 11:32 BP 137 / 104; Pulse 70bpm; Resp 18bpm; Pulse Ox 100%; Temp 97.3F; 136.53 kg; ll1 Height 5 ft. 6 in.; BMI: 48.5; Pain 3/10, Adult; ll1
--- NOTE | 2024-05-31 14:08 | EDPHYS ---
Physician Documentation [facility] Name: Mansoor Cerda Jr Age: 58 yrs Sex: Male : 1965 Arrival Date: 05/31/2024 Time: 11:22 Bed 19 Private MD: ED Physician Denys Barrientos HPI: 05/31 11:47 This 58 yrs old Male presents to ER via Ambulatory with complaints of Vomiting.ms3 11:47 Mansoor Youssef Jr., a 58-year-old male, presents to the emergency department with ms3 vomiting. He reports a history of severe acid reflux diagnosed via endoscopy on May 10. For the past week, he has experienced fatigue, chest pain, shortness of breath, and numbness, which were evaluated previously with no cardiac issues found. His symptoms have worsened over the past couple of days, with difficulty eating and drinking without vomiting. He attempted to eat soup last night but felt nauseous and gagged without relief. He has also experienced poor sleep due to nausea. He has diarrhea at times and occasional constipation. The patient has been unable to work since [place] due to his symptoms. 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 Historical: - Allergies: 11:34 Phenergan; ll1 - PMHx: 11:34 Anxiety; GERD; Gout; Hypertension; Kidney stones; ll1 - PSHx: 11:34 Cholecystectomy; ll1 - Immunization history:: Adult Immunizations up to date. - Infectious Disease History:: Denies. - Social history:: Smoking status: Patient denies any tobacco usage or history of. ROS: 11:47 Constitutional: Negative for fever, and chills. Cardiovascular: Negative for chest ms3 pain, and palpitations. Respiratory: Negative for shortness of breath, cough, wheezing, and pleuritic chest pain, 11:47 MS/Extremity: Negative for injury and deformity, Skin: Negative for injury, rash, and discoloration, 11:47 Abdomen/GI: Positive for nausea, Exam: 11:47 Constitutional: This is a well developed, well nourished patient who is awake, alert, ms3 and in no acute distress. Cardiovascular: Regular rate and rhythm with a normal S1 and S2. No gallops, murmurs, or rubs. Normal PMI, no JVD. No pulse deficits. Respiratory: Lungs have equal breath sounds bilaterally, clear to auscultation and percussion. No rales, rhonchi or wheezes noted. No increased work of breathing, no retractions or nasal flaring. Abdomen/GI: Soft, non-tender, with normal bowel sounds. No distension or tympany. No guarding or rebound. No evidence of tenderness throughout. Skin: Warm, dry with normal turgor. Normal color with no rashes, no lesions, and no evidence of cellulitis. MS/ Extremity: Pulses equal, no cyanosis. Neurovascular intact. Full, normal range of motion. Vital Signs: 11:32 BP 137 / 94; Pulse 70; Resp 18; Temp 97.3; Pulse Ox 100% ; Weight 136.53 kg; Height 5 ll1 ft. 6 in. ; Pain 3/10; 12:40 BP 117 / 73; Pulse 64; Resp 20; Temp 98(O); Pulse Ox 99% on R/A; kj2 13:52 BP 128 / 68; Pulse 61; Resp 18; Pulse Ox 96% on R/A; kj2 14:35 BP 126 / 68; Pulse 60; Resp 20; Temp 98; Pulse Ox 100% on R/A; kj2 11:32 Body Mass Index 48.58 (136.53 kg, 167.64 cm) ll1 11:32 Pain Scale: Adult ll1 MDM: 11:47 Differential diagnosis: Nonspecific abd pain, gastritis. ms3 11:50 Medical Screening Exam initiated ms3 14:08 Data reviewed: vital signs, nurses notes, lab test result(s), radiologic studies, and ms3 as a result, I will discharge patient. I considered the following discharge prescriptions or medication management in the emergency department Medications were administered in the Emergency Department. See MAR. Counseling: I had a detailed discussion with the patient and/or guardian regarding the historical points, exam findings, and any diagnostic results supporting the discharge/admit diagnosis, lab results, radiology results, the need for outpatient follow up, to return to the emergency department if symptoms worsen or persist or if there are any questions or concerns that arise at home. Special discussion: I discussed with the patient the need to follow-up with the PCP/specialist for the noted incidental finding on X-ray/CT scanning. ED course: Discussed labs and imaging with patient and his . Patient states his symptoms have improved since arrival. Patient is alert and oriented x 4, no apparent distress, nontoxic-appearing, speaking full sentences. Patient has appointment on Monday with Dr. Ruby. Return precautions discussed include worsening symptoms, or any other concerns.. 05/31 11:50 Order name: CBC with Diff; Complete Time: 12:23 ms3 05/31 11:50 Order name: CMP; Complete Time: 12:23 ms3 05/31 11:50 Order name: Lipase; Complete Time: 12:23 ms3 05/31 11:50 Order name: CT Abd/Pelvis - IV Contrast Only; Complete Time: 13:36 ms3 05/31 11:50 Order name: IV Saline Lock; Complete Time: 11:58 ms3 05/31 11:50 Order name: Labs collected and sent; Complete Time: 11:58 ms3 Administered Medications: 12:39 Drug: metoCLOPramide IVP 10 mg IVP once; over 1 to 2 minutes Route: IVP; Site: right 2 antecubital; 14:40 Follow up: Response: No adverse reaction kj2 12:40 Drug: Famotidine IVP 20 mg IVP once; dilute with 10 mL 0.9% NaCl; give over 2 minutes kj2 Route: IVP; Site: right antecubital; 14:39 Follow up: Response: No adverse reaction kj2 12:40 Drug: NS 0.9% IV 1000 ml IV at 1 bolus Per protocol; to be given as a bolus over 60 kj2 minutes Route: IV; Rate: 1 bolus; Site: right antecubital; 14:40 Follow up: IV Status: Completed infusion; IV Intake: 1000ml kj2 Disposition Summary: 05/31/24 14:07 Discharge Ordered Notes: Location: Home ms3 Condition: Stable ms3 Diagnosis - Abdominal pain, Generalized ms3 - Nausea ms3 - Hepatic steatosis ms3 - Elevated bilirubin level ms3 - Abnormal CT finding in prostate ms3 Followup: ms3 - With: Zana Reagan MD - When: 2 - 3 days - Reason: Recheck today's complaints Discharge Instructions: - Discharge Summary Sheet ms3 - Abdominal Pain, Adult ms3 - Nausea, Adult ms3 Forms: - Medication Reconciliation Form ms3 - Antibiotic Education ms3 - Prescription Opioid Use ms3 - Patient Portal Instructions ms3 - Leadership Thank You Letter ms3 Prescriptions: - Reglan 10 mg Oral Tablet - take 1 tablet ORAL route every 6 hours take 30 minutes before meals and at ms3 bedtime; 20 tablet; Refills: 0, Product Selection Permitted Signatures: Dispatcher [employer] EDMS Gallito Wilson, MARY RN ll1 Denys Barrientos DO DO ms3 Heidi Galindo RN RN kj2 Corrections: (The following items were deleted from the chart) 11:50 11:50 Abdomen Pelvis W Con+CT.RAD.BRZ ordered. EDMS EDMS
[2024-05-31 15:02] VITALS: TEMP 98
[2024-05-31 15:05] VITALS: BP 126/68; O2SAT 100
== END 2024-05-31 14:39 | disposition home or self-care (01) ==
LOC: ER 11:22
DX: R10.84 Generalized abdominal pain (principal); R11.0 Nausea; K76.0 Fatty (change of) liver, not elsewhere classified; R93.89 Abnormal findings on diagnostic imaging of other specified body structures; R74.8 Abnormal levels of other serum enzymes; I10 Essential (primary) hypertension; Z88.8 Allergy status to other drugs, medicaments and biological substances
CPT/HCPCS: 96361; 85025; 36415; 83690; 80053; 74177; 96375; 96374; 99284; Q9967; J2765; J7030

== ENCOUNTER 2024-07-12 10:39 | Day surgery (SDC) | payer OTHER ==
[2024-07-10 15:00] LABS: Absolute Basophils 0.1 K/uL (0-0.5); Absolute Eosinophils 0.2 K/uL (0-0.5); Absolute Lymphocytes (CBC) 2.1 K/uL (0.7-4.9); Absolute Monocytes 0.8 K/uL (0.1-1.3); Absolute Neutrophil 5.3 K/uL (1.8-8.0); Eosinophils % 2.2 % (0-4.4); Hematocrit 40.5 % (39.6-49.0); Hemoglobin 14.2 g/dL (13.6-17.9); MCH 29.6 pg (27.0-35.0); MCHC 35.1 g/dL (32.0-36.0); MCV 84.2 fL (80-100); MPV 10.5 fL (7.6-11.3); Monocytes % 9.3 % (3.3-12.3); Neutrophils % 62.5 % (41.7-73.7); Nucleated Red Blood Cells % 0.1 % (0-0); Platelets 198 thou/uL (152-406); RBC Red Blood Cell Count 4.81 M/uL (4.33-5.43)
[2024-07-10 15:11] LABS: Anion Gap 8.2 mEq/L (5.0-15.0); Potassium 3.2 mEq/L (3.5-5.1)
--- NOTE | 2024-07-10 23:13 | RAD REPORT ---
EXAMINATION: TWO VIEW CHEST XR CLINICAL INDICATION: Male, 58 years old. BR MAIN Pre-op pending hernia repair. Hypertension TECHNIQUE: 2 view radiographs of the chest were performed. COMPARISON: 01/17/2020 FINDINGS: The lungs are well inflated and clear. No pneumothorax or sizable effusion. The heart is normal in si ze. Mediastinal contours are unremarkable. IMPRESSION: No acute or significant abnormalities.
[2024-07-12] MEDS: Ringers Lactate 1,000 ML IV ONE (11:10)
[2024-07-12] MEDS ORDERED: ONDANSETRON 4 MG/2 ML VIAL ONE (11:54)
[2024-07-12] MEDS ORDERED: dexAMETHasone 10 MG/ML VIAL ONE (11:54)
[2024-07-12] MEDS ORDERED: propofoL 200 MG/20 ML VIAL IV ONE (11:54)
[2024-07-12] MEDS ORDERED: FENTANYL CITR 100 MCG/2 ML ONE (11:54)
[2024-07-12] MEDS ORDERED: MIDAZOLAM HCL 2 MG/2 ML INJ ONE (11:54)
[2024-07-12] MEDS ORDERED: LIDOCAINE 2% MPF 5 ML VIAL ONE (11:54)
[2024-07-12] MEDS ORDERED: ROCURONIUM 50 MG/5 ML VIAL IV ONE (11:54)
[2024-07-12] MEDS ORDERED: SUGAMMADEX SODIUM 200 MG/2 ML VIAL IV ONE (12:13)
[2024-07-12] MEDS ORDERED: GLYCOPYRROLATE 0.2 MG/ML SYR ONE (13:04)
[2024-07-12] MEDS: CEFAZOLIN SODIUM 1 GM/VIAL ONE (13:05)
[2024-07-12] MEDS ORDERED: CEFAZOLIN SODIUM 1 GM/VIAL ONE (13:07)
[2024-07-12] MEDS ORDERED: EPHEDRINE SULF 50 MG/ML VIAL ONE (13:07)
[2024-07-12] MEDS ORDERED: SUCCINYLCHOLINE 20 MG/ML (10 ML) IV ONE (14:18)
--- NOTE | 2024-07-12 14:45 | EKG ---
Test Date: 2024-07-10 Test Time: 14:38:45 Trim Sawyer: THONG MEASUREMENT RESULTS: Intervals: Rate: 56 SD: 170 QRSD: 110 QT: 426 QTc: 411 Helotes: P: 19 SD: 170 QRS: 52 T: 52 INTERPRETIVE STATEMENTS: Sinus bradycardia Otherwise normal ECG Compared to ECG 02/06/2017 14:55:28 Sinus rhythm no longer present Electronically Signed On 07-12-24 14:41:49 CDT by Santosh Campo
[2024-07-12] MEDS: HYDROCODONE/APAP 10/325 TAB ONE (15:15)
--- NOTE | 2024-07-12 15:36 | P.BOP ---
Preoperative diagnosis: incarcerated umbilical hernia, morbid obesity Postoperative diagnosis: same Primary procedure: Laparoscopic repair of incarcerated umbilical hernia with mesh Secondary procedure: 5cm Slab Tripper: Domi Echevarria ([place]) Estimated blood loss: <10cc Specimen: sac, omentum pieces Findings: incarcerated omentum Anesthesia: General Complications: None Transferred to: Recovery Room Condition: Good
[2024-07-12 15:42] VITALS: TEMP 97; O2SAT 94
[2024-07-12 17:20] VITALS: BP 140/80
--- NOTE | 2024-07-13 01:51 | OP ---
Date of Procedure: 07/12/2024 Surgeon: Henok Mary MD It Systems Analyst: MANUEL Hanks. Preoperative Diagnosis: Tender incarcerated umbilical hernia about 5 cm. Postoperative Diagnosis: Tender incarcerated umbilical hernia about 5 cm. Procedure: Laparoscopic repair of incarcerated umbilical hernia with mesh. Estimated Blood Loss: Less than 10 cc. Complications: None. Mesh is a Ventralex mesh, medium size. Indications: This is a case of a 58-year-old patient comes to us with an incarcerated umbilical juan carlos ia. The benefits, alternatives, and risks of laparoscopic procedure, open repair with mesh fully exp lained, which include, but not limited to, infection, bleeding, damage to adjacent structures, anesth esia complication, recurrence, MO, and even . He also understands this may not relieve any symp toms. He might need more than one surgical intervention. He understands the importance of losing we ight. He also was explained, we may be using mesh in that region. So, pros and cons of mesh were di scussed with the patient. All the questions were answered to his satisfaction. He signed a consent. Description Of Procedure: The patient was brought to the operating room, placed in supine position. Anesthesia was induced without complication. Abdominal area was prepped and draped in sterile fashi on. A time-out was called. Local anesthesia was applied in the periumbilical region. Incision was carried down until we found the hernia sac. This cannot be reduced. We opened the hernia sac, notic ed a lot of incarcerated omentum. Some of them could be reduced. The rest have to be ligated betwee n Isabel clamps and 0 chromic. We reduced back the rest of the omentum. Once fully inspected to make sure there was no bleeding and removed the hernia sac. We noticed the fascia edges were friable so even though we going to trying to approximate this for cosmetic reasons and he needed mesh reinforcem ent underneath, so we placed Vicryl 1 inside the fascia multiple times in [id number] fashion and then after that I proceeded to place a Stevie trocar through it and obtained pneumoperitoneum. We p laced a 5 mm trocars in the left and right side of the abdomen, switched the camera to those areas, a nd then inspected the area of weakness and selected a medium-sized Ventralex to cover the area of the defects by 3 to 5 cm. The mesh was dropped through the Stevie trocar. The Stevie trocar was remove d while we holding the [id number] fashion multiple stitches in place. We were able to secure th e mesh to the anterior abdominal wall. Then removed the mesh strap, closed the defect with multiple [id number] fashion sutures. Then, after that, went inside the belly once again and secured the mesh anteriorly circumferentially with the help of SorbaFix fixation device. No bleeding. The area of the partial removal of omentum was also reviewed with no bleeding. At that moment, I proceeded to remove the pneumoperitoneum and removed the trocars under direct visualization and then proceeded to close the subcutaneous tissue with 3-0 chromic and the skin with lorena. Sponge counts and instrum ent counts were correct. The patient tolerated the procedure well. The patient was sent to Recovery in stable condition. JONELLE/ROHAN Voice ID: [id number] Report ID: [id number]
--- NOTE | 2024-07-13 01:56 | DS ---
Date of Discharge: 07/12/2024 Diagnosis: Morbid obesity incarcerated umbilical hernia. Procedure: Laparoscopic repair of umbilical hernia with mesh. Condition: Stable. Disposition: Home. Activity: As tolerated. No heavy lifting. Discharge Instructions: Follow up in my office in 1 week. Call for appointment at [phone]. Keep t he area dry for 48 hours, then may shower. Keep lorena intact. Patient advised to use abdominal bi nder once out of bed. We encouraged ambulation and deep breathing. Medications were called. JONELLE/ROHAN Voice ID: [id number] Report ID: [id number]
== END 2024-07-12 16:32 | disposition home or self-care (01) ==
LOC: PRE 10:39 → OR 16:32
PROVIDERS: ATTEND Surgery
PROC: 0WUF4JZ Supplement Abdominal Wall with Synthetic Substitute, Percutaneous Endoscopic Approach (ICD-10-PCS; principal; 2024-07-12 12:00)
DX: K42.0 Umbilical hernia with obstruction, without gangrene (principal); I10 Essential (primary) hypertension; G47.33 Obstructive sleep apnea (adult) (pediatric)
CPT/HCPCS: 93005; 85025; 80048; 36415; 88302; 71046; 49594; J2704; J2003; J2250; J3010; J1100; J2405; J7120; J0690 ×2; A4314